=== PATIENT | male | born 1970 | race Caucasian/White ===

== ENCOUNTER 2021-12-26 14:31 | Outpatient (REF) | payer MEDICARE, MEDICAID, SELFPAY ==
--- NOTE | ~2021-12-26 | XR_ITS ---
EXAMINATION: XR KNEE, RIGHT XR KNEE, LEFT CLINICAL INFORMATION: Bilateral knee pain. COMPARISON: Radiographs left knee 07/15/2018. TECHNIQUE: Each knee is imaged in 3 views, including AP view with weight bearing. There are total of 6 views. FINDINGS: Right: Normal bony mineralization. No fracture, dislocation, destructive process. No joint narrowing or erosive change or chondrocalcinosis. There is mild spurring from the lateral patella. No lateralization patella or tilting. There is trace thickening of the suprapatellar bursa. Left: Normal bony mineralization. No fracture, dislocation, or destructive process. No suprapatellar effusion. Moderate effusion on prior study 2018 has resolved. There is no joint narrowing or erosive change or chondrocalcinosis. There is small broad-based central osteophyte medial femoral condyle and borderline spurring lateral patella. No lateralization patella or patellar tilting. XR/XR knee LT 3V IMPRESSION: Right: -Trace fluid suprapatellar bursa. -No joint narrowing or erosive change. Left: -Small central osteophyte medial femoral condyle. No joint narrowing or erosive change. -No suprapatellar effusion (prior moderate effusion 2018 resolved).
--- NOTE | ~2021-12-26 | XR_ITS ---
EXAMINATION: XR KNEE, RIGHT XR KNEE, LEFT CLINICAL INFORMATION: Bilateral knee pain. COMPARISON: Radiographs left knee 07/15/2018. TECHNIQUE: Each knee is imaged in 3 views, including AP view with weight bearing. There are total of 6 views. FINDINGS: Right: Normal bony mineralization. No fracture, dislocation, destructive process. No joint narrowing or erosive change or chondrocalcinosis. There is mild spurring from the lateral patella. No lateralization patella or tilting. There is trace thickening of the suprapatellar bursa. Left: Normal bony mineralization. No fracture, dislocation, or destructive process. No suprapatellar effusion. Moderate effusion on prior study 2018 has resolved. There is no joint narrowing or erosive change or chondrocalcinosis. There is small broad-based central osteophyte medial femoral condyle and borderline spurring lateral patella. No lateralization patella or patellar tilting. XR/XR knee RT 3V IMPRESSION: Right: -Trace fluid suprapatellar bursa. -No joint narrowing or erosive change. Left: -Small central osteophyte medial femoral condyle. No joint narrowing or erosive change. -No suprapatellar effusion (prior moderate effusion 2018 resolved).
--- NOTE | ~2021-12-26 | XR_ITS ---
EXAMINATION: XR CERVICAL SPINE CLINICAL INFORMATION: M50.90 - Cervical disc disorder, unspecified COMPARISON: MR cervical spine 09/14/2016, radiographs cervical spine 07/16/2014. TECHNIQUE: 3 views of the cervical spine were obtained. FINDINGS: There is mild rightward tilting cervical spine on coronal images with normal cervical lordosis. The vertebral bodies are normal in height. There is no cervical vertebral compression, spondylolisthesis, destructive process, or prevertebral soft tissue swelling. The odontoid appears intact. There are mild degenerative disc changes at C6-C7 with disc narrowing and mild endplate sclerosis and anterior vertebral spurring. XR/XR cervical spine 3V IMPRESSION: Degenerative disc changes C6-C7.
--- NOTE | ~2021-12-26 | XR_ITS ---
EXAMINATION: XR ELBOW, RIGHT CLINICAL INFORMATION: M25.521 - Pain in right elbow COMPARISON: None TECHNIQUE: Right elbow is imaged in 3 views. FINDINGS: No fracture, dislocation, destructive process, or elbow capsular effusion. Normal bony mineralization. There is spurring at the olecranon and coronoid process. No joint narrowing or erosive changes. XR/XR elbow RT min 3V IMPRESSION: -Spurring at olecranon and ulnar coronoid process.
--- NOTE | ~2021-12-26 | XR_ITS ---
EXAMINATION: XR THORACIC SPINE CLINICAL INFORMATION: M54.9 - Dorsalgia, unspecified COMPARISON: Radiographs cervical spine and lumbar spine 04/27/2022, radiographs chest 09/25/2016. TECHNIQUE: 3 views of the thoracic spine were obtained. FINDINGS: There is normal thoracic segmentation with 12 rib-bearing thoracic vertebrae of normal height and normal thoracic kyphosis. There is no focal thoracic vertebral compression, spondylolisthesis, destructive process, or paraspinal soft tissue swelling. There are mild degenerative changes mid to lower thoracic spine with fine vertebral body spurring. No erosive change. XR/XR thoracic spine 3V IMPRESSION: -No vertebral compression, spondylolisthesis, destructive process. -Mild spurring mid to lower thoracic vertebra.
--- NOTE | ~2021-12-26 | XR_ITS ---
EXAMINATION: XR LUMBOSACRAL SPINE CLINICAL INFORMATION: M54.50 - Low back pain, unspecified COMPARISON: CT abdomen and pelvis 12/26/2019, radiographs thoracic spine 12/26/2021, MR lumbar spine 09/14/2016, radiographs lumbar spine 09/12/2016. TECHNIQUE: Three views of the lumbosacral spine. FINDINGS: There is normal lumbar segmentation with 5 nonrib-bearing lumbar vertebrae of normal height and normal lumbar lordosis. There is no lumbar vertebral compression, spondylolisthesis, destructive process. There are mild degenerative disc changes lower thoracic spine, L1-L2, and L2-L3. Borderline disc narrowing also present at L4-L5. No erosive change. The SI joints and visualized circumflex MR unremarkable. XR/XR lumbar spine 2-3V IMPRESSION: -Mild degenerative disc changes lower thoracic and upper lumbar spine. -No vertebral compression, spondylolisthesis, destructive process.
[2021-12-26 16:34] LABS: MANUAL DIFF FLAG NO
[2021-12-26 16:42] LABS: Basophils Absolute Auto 0.1 X10*3/uL (0.0-0.2); Basophils Percent Auto 0.9 % (0-2); Eosinophils Absolute Auto 0.2 X10*3/uL (0.0-0.4); Eosinophils Percent Auto 3.7 % (0-4); Hematocrit 43.6 % (42.0-52.0); Hemoglobin 14.5 g/dl (14.0-18.0); Imm Gran Abs Auto 0.01 X10*3/uL (0.00-0.03); Imm Gran Pct Auto 0.2 % (0.0-0.4); Lymphocytes Absolute Auto 1.5 X10*3/uL (1.2-4.9); Lymphocytes Percent Auto 28.8 % (20-40); Mean Corpuscular HGB Conc 33.3 g/dl (31.0-36.0); Mean Corpuscular Hemoglobin 30.1 pg (27.0-33.0); Mean Corpuscular Volume 90.6 fL (80.0-98.0); Mean Platelet Volume 8.5 fL (9.4-12.4); Monocytes Absolute Auto 0.4 X10*3/uL (0.1-1.2); Monocytes Percent Auto 8.2 % (2-11); Neutrophils Absolute Auto 3.1 x10*3/uL (2.0-8.3); Neutrophils Percent Auto 58.2 % (45-73); Platelet Count 340 X10*3/uL (160-400); Red Blood Count 4.81 X10*6/uL (4.60-5.80); Red Cell Distribution Width 12.1 % (11.0-16.0); White Blood Count 5.3 X10*3/uL (4.8-10.8)
[2021-12-26 16:49] LABS: Estimated Average Glucose 105 mg/dL; Hemoglobin A1c % 5.3 %
[2021-12-26 17:03] LABS: Alanine Aminotransferase 22 U/L (0-40); Albumin Level 4.7 g/dL (3.5-5.0); Alkaline Phosphatase 86 U/L (39-117); Anion Gap 12 (12-20); Aspartate Amino Transferase 18 U/L (5-37); Bilirubin Total 1.2 mg/dL (0.0-1.0); Blood Urea Nitrogen 17 mg/dL (9-16); C Reactive Protein 0.15 mg/dL (< or = 0.50); Calcium 10.1 mg/dL (8.4-10.2); Carbon Dioxide 29 mmol/L (22-29); Chloride 104 mmol/L (96-108); Cholesterol 213 mg/dL; Estimated Glomerular Filt Rate > 60; Glucose Fasting 108 mg/dL (60-99); HDL Cholesterol 30 mg/dL; LDL Cholesterol Calculated 135 mg/dl; Potassium 4.2 mmol/L (3.3-5.1); Rheumatoid Factor < 15.0 IU/mL (<15.0); Sodium 141 mmol/L (135-145); Total Protein 7.6 g/dL (6.5-8.0); Triglycerides 244 mg/dL; Uric Acid 6.6 mg/dL (3.4-7.0)
[2021-12-26 17:15] LABS: TSH reflex Free T4 3.22 uIU/mL (0.32-4.0); Vitamin D 25-OH Total 6.7 ng/mL (>30)
[2021-12-26 17:22] LABS: Folate 11.8 ng/mL (> or = 4.0); Vitamin B12 359 pg/mL (200-900)
[2021-12-26 17:24] LABS: Appearance Urine TURBID; Color Urine YELLOW; Glucose Urine UA NEG (NEG); Leukocyte Esterase Urine NEG (NEG); Nitrite Urine NEG (NEG); PH 5.5 (5.0-8.0); Specific Gravity - Urine >= 1.030 (1.005-1.025); UACC Culture Trigger NO; Urine Blood 2+ (NEG); Urine Ketones NEG (NEG); Urine Protein NEG (NEG-TRACE)
[2021-12-26 17:45] LABS: Erythrocyte Sedimentation Rate 6 MM/HR (0-15)
[2021-12-26 18:45] LABS: Amorphous Sediment Urine 4+ /LPF; Calcium Oxalate Crystals Urine 1+ /LPF; RBC Urine 0 /HPF (0); Squamous Epithelial Cell Urine 2+ /LPF; WBC Urine 0 /HPF (0-4)
[2021-12-28 14:26] LABS: Anti Nuclear Antibody Screen NEGATIVE (NEGATIVE)
== END 2021-12-26 14:32 | disposition home or self-care (01) ==
LOC: HO.HMGCX 14:31
PROVIDERS: PCP Internal Medicine; Visit Provider Internal Medicine
DX: M54.50 Low back pain, unspecified (principal); M51.36 Other intervertebral disc degeneration, lumbar region; M50.90 Cervical disc disorder, unspecified, unspecified cervical region; M25.561 Pain in right knee; M25.562 Pain in left knee; M25.521 Pain in right elbow; M54.9 Dorsalgia, unspecified; G89.29 Other chronic pain; E53.8 Deficiency of other specified B group vitamins; R41.3 Other amnesia; R73.01 Impaired fasting glucose; I10 Essential (primary) hypertension; E55.9 Vitamin D deficiency, unspecified; E78.00 Pure hypercholesterolemia, unspecified
CPT/HCPCS: 36415; 72040; 72072; 72100; 73080; 73562; 80053; 80061; 81001; 81003; 82306; 82607; 82746; 83036; 84443; 84550; 85025; 85652; 86038; 86039; 86140; 86431

== ENCOUNTER 2022-10-15 01:57 | Emergency (ER) | payer MEDICARE, MEDICAID, SELFPAY ==
[2022-10-15 02:00] VITALS: BP 140/70; PULSE 86; O2SAT 99
[2022-10-15 02:39] VITALS: BP 134/77; PULSE 79; RESP 16; TEMP 36.6; O2SAT 95; BMI 33.9
[2022-10-15 07:16] VITALS: BP 138/77; PULSE 80; RESP 16; TEMP 36.8; O2SAT 95
--- NOTE | 2022-10-15 08:37 | ED.GENADULT ---
HPI - General Adult General Chief complaint: General Medical Stated complaint: Eval Time Seen by Provider: 10/15/22 08:15 Source: patient and EMS Mode of arrival: EMS Limitations: no limitations History of Present Illness HPI narrative: 52-year-old male with a history of chronic back pain, multiple herniated discs, COPD, anxiety, depression, PTSD, hypertension, hyperlipidemia who presents to the emergency room after her falling asleep while playing cards. Patient reports that he has not been sleeping well due to acute on chronic back pain. He has several oxycodone at home that her left over from old prescription. He has not slept for the last 48 hours. Last night he decided to take 30 mg of oxycodone for worsening back pain. Per patient he was playing cards with his roommate when he fell asleep. This prompted them to call the ambulance. Patient on arrival feels well and has no complaints. Patient tells me that he has multiple herniated discs and has had increased pain left lower back. He also has a history of kidney stones and feels like he may be casting a kidney stone as he initially had some hematuria with this pain. No current urinary symptoms, fevers, vomiting. Patient reports he does not take oxycodone daily. He only took this dose due to severe pain. He denies any intentional overdose. no suicidal or homicidal ideation. currently feels well Related Data Home Medications Medication Instructions Recorded Confirmed atenolol 50 mg tablet 50 mg PO DAILY 10/20/21 08/25/22 Previous Rx's Medication Instructions Recorded tramadol 50 mg tablet 50 mg PO TID PRN pain 28 days #84 10/20/21 tabs metoprolol succinate 50 mg 50 mg PO DAILY 90 days #90 tabs 04/07/22 tablet,extended release 24 hr trazodone 100 mg tablet 100 mg PO BEDTIME PRN for insomnia 05/10/22 #30 tabs escitalopram oxalate 20 mg tablet 20 mg PO DAILY #90 tabs 07/21/22 bupropion HCl 100 mg tablet See Rx Instructions PO BID 30 days 07/25/22 #90 tabs pravastatin 40 mg tablet 40 mg PO DAILY #90 tabs 08/06/22 quetiapine 400 mg tablet 400 mg PO BEDTIME #90 tabs 08/07/22 Ventolin HFA 90 mcg/actuation 2 puff inhalation Q4-6H PRN 08/21/22 aerosol inhaler (albuterol sulfate) shortness of breath or wheezing 30 days #18 grams sennosides 8.6 mg tablet (senna) 17.2 mg PO BEDTIME PRN 08/25/22 constipation 30 days #60 tabs lactulose 20 gram/30 mL oral 20 g (30 mL) PO BEDTIME 3 days #90 09/15/22 solution mL polyethylene glycol 3350 17 gram 17 g PO DAILY 30 days #30 ea 09/15/22 oral powder packet (Miralax) tizanidine 4 mg tablet See Rx Instructions PO Q8H PRN 09/18/22 muscle spasticity 30 days #360 tabs clonazepam 1 mg tablet 1 mg PO Q8H PRN anxiety 30 days 09/21/22 #90 tabs zolpidem 10 mg tablet 10 mg PO BEDTIME PRN insomnia 30 10/11/22 days #30 tabs Allergies Allergy/AdvReac Type Severity Reaction Status Date / Time codeine [Codeine] Allergy Intermediate UPSET Verified 08/25/22 16:01 STOMACH hydrochlorothiazide Allergy Intermediate SICK, Verified 08/25/22 16:01 [HYDROCHLOROTHIAZIDE] nausea and vomiting Penicillins [PENICILLINS] Allergy Intermediate SICK TO Verified 08/25/22 16:01 STOMACH Review of Systems Review of Systems: Yes all other systems are reviewed and are negative Constitutional: Constitutional: Reports no additional constitutional complaints, Denies body ache(s), Denies chills, Denies fever(s), Denies headache(s) and Denies weakness Eyes: Eyes: Reports no additional eye complaints and Denies change in vision ENT: Reports system reviewed and no additional complaints, except as documented, Denies dizziness, Denies headache(s), Denies nasal congestion, Denies nasal discharge and Denies neck pain Cardiovascular: Cardiovascular: Reports no additional cardiovascular complaints, Denies chest pain, Denies leg edema and Denies dyspnea Respiratory: Respiratory: Reports no additional respiratory complaints, Denies cough and Denies dyspnea Gastrointestinal: Gastrointestinal: Reports no additional gastrointestinal complaints, Denies abdominal pain, Denies diarrhea, Denies nausea and Denies vomiting Genitourinary: Genitourinary: Denies urinary incontinence Musculoskeletal: Musculoskeletal: Reports no additional musculoskeletal complaints, Reports back pain, Denies arthralgias, Denies joint swelling, Denies neck pain, Denies numbness and Denies tingling Integumentary/Breasts: Skin/Breast: Reports system reviewed and no additional complaints, except as docu and Denies rash Neurologic: Reports system reviewed and no additional complaints, except as documented, Denies dizziness, Denies headache(s), Denies numbness, Denies tingling and Denies weakness PMFSH Past Medical History Attestation statement: The following information was validated with the patient. Source: old records reviewed and nursing notes reviewed Medical History Anxiety Benign essential hypertension Cervical disc disease Chronic obstructive pulmonary disease (COPD) Constipation Depression GERD without esophagitis Hematuria Impaired fasting glucose Insomnia Lumbar degenerative disc disease Obesity (BMI 30-39.9) Pure hypercholesterolemia Right elbow pain Right knee pain Smoker Vitamin D deficiency Surgical History S/P colonoscopy with polypectomy (~10/07/15) Family History Family History Father Medical history unknown Mother Hypertension Social History Social History Housing: House Alcohol intake: never Patient Tobacco Use Status: Current everyday Tobacco user Cigarettes Per Day: 10 Smoked in Last 30 Days: Yes Second Hand Smoke Exposure: Yes Use of substances other than those prescribed or required for medical reasons: No Advance Directives: No service: No Current occupational status: disabled Cognitive needs: No Hearing needs: No Vision needs: No Physical Exam ED Vital Signs: Vital Signs - 24 hr 10/15/22 02:39 10/15/22 07:16 Temperature 97.9 F 98.3 F Pulse Rate 79 80 Respiratory Rate 16 16 Blood Pressure 134/77 138/77 Pulse Oximetry 95 95 Oxygen Delivery Method Room Air Room Air BMI result Body Mass Index 33.9 Const General: cooperative, healthy appearing, comfortable and no acute distress Orientation/consciousness: patient oriented x3 Limitations: no limitations HENMT Head: Yes normal to inspection Ears: hearing grossly normal bilaterally and TM's normal bilaterally General nose exam: Normal external nose present Face and sinus: Yes normal facial exam Mouth: Normal oral and palatal mucosa present Throat: Yes posterior oropharynx normal, Yes tonsils normal and Yes uvula midline Eyes General: appearance normal, both eyes and all related structures Pupils: Equal, round and reactive pupils present Neck Neck: Yes normal visual inspection, Yes full ROM and Yes no lymphadenopathy Chest Chest palpation & inspection: normal inspection of the chest Resp Effort & Inspection: normal respiratory effort Auscultation: clear to auscultation bilaterally Cardio Rate: regular rate Rhythm: regular rhythm Peripheral pulses: Peripheral pulses 2+ throughout GI Inspection: Yes normal to inspection Palpation (GI): Soft to palpation and nontender General: Yes no CVA tenderness Back/Spine/Pelvis Back: no CVA tenderness Thoracic/Lumbar Spine: thoracic and lumbar spine normal to inspection Skin General skin exam: no rashes or lesions noted Neuro General: patient oriented x3 and moves all extremities Cranial nerves: Yes CN's II-XII intact bilaterally, Yes Equal, round and reactive pupils present, Yes Bilaterally intact EOM present, Yes Nystagmus not present and Yes Normal facial strength present Cognition (Neuro): normal cognition Gait exam (Neuro): Normal gait present Motor exam (neuro): 5/5 motor strength present throughout Sensory Exam: Normal double simultaneous stimulation for sensation Extrem General: Yes normal to inspection, Yes no pedal edema and Yes no calf tenderness Medical Decision Making Medical Decision Making MDM Narrative: 52-year-old male here after telling me that he took 30 mg of oxycodone with little sleep and then fell asleep while playing cards last night with his friends. On arrival patient is alert and oriented. Normal neurological exam with no focal findings. Vitals are stable. Patient reports he took the oxycodone due to acute on chronic back pain and also has additional concerned that he may have passed a kidney stone. Patient has history of chronic back pain due to multiple herniated discs reportedly and had been on chronic opiates until this was held by his primary care. He does have an appointment in a few weeks to discuss his chronic pain with his primary care. He had several tablets left over of oxycodone and he takes them sparingly. Patient denies any intent for harm. On exam abdomen soft nontender. Patient with back pain on exam. I offered to evaluate the patient further with labs, urinalysis, CT of the abdomen and pelvis for his concern for kidney stone. Patient declined this. He wants no further intervention. He wants to go home and follow-up with his primary care doctor. We discussed that is not a good idea to take this large dose of oxycodone on little sleep as he may on intentionally overdose. Patient is agreeable with this moving forward. Differential Diagnosis Differential Diagnoses: The differential diagnosis associated with the presentation includes Over-medicated, unintentional OD Independent Historian Clinical information obtained from an independent historian. History obtained from or confirmed by: EMS Discharge Plan Discharge Clinical Impression: Chronic pain Patient Disposition: Home, Self-Care Instructions: Chronic Pain (ED) Additional Instructions: be careful when taking oxycodone especially if your not sleeping well Prescriptions: No Action metoprolol succinate 50 mg tablet extended release 24 hr 50 mg PO DAILY 90 Days Qty: 90 1RF trazodone 100 mg tablet 100 mg PO BEDTIME PRN (Reason: for insomnia) Qty: 30 5RF escitalopram oxalate 20 mg tablet 20 mg PO DAILY Qty: 90 0RF bupropion HCl 100 mg tablet See Rx Instructions PO BID 30 Days Qty: 90 5RF Rx Instructions: Take 1 tablet in AM and 2 tablets in PM PO 2 times a day; pravastatin 40 mg tablet 40 mg PO DAILY Qty: 90 1RF quetiapine 400 mg tablet 400 mg PO BEDTIME Qty: 90 1RF albuterol sulfate [Ventolin HFA] 90 mcg/actuation HFA aerosol inhaler 2 puff inhalation Q4-6H PRN (Reason: shortness of breath or wheezing) 30 Days Qty: 18 3RF lactulose 20 gram/30 mL solution 20 g PO BEDTIME 3 Days Qty: 90 0RF Rx Instructions: Take daily x 3 days only polyethylene glycol 3350 [Miralax] 17 gram powder in packet 17 g PO DAILY 30 Days Qty: 30 5RF tizanidine 4 mg tablet See Rx Instructions PO Q8H PRN (Reason: muscle spasticity) 30 Days Qty: 360 2RF Rx Instructions: 2 to 4 tablets PO every 8 hours PRN; clonazepam 1 mg tablet 1 mg PO Q8H PRN (Reason: anxiety) 30 Days Qty: 90 0RF zolpidem 10 mg tablet 10 mg PO BEDTIME PRN (Reason: insomnia) 30 Days Qty: 30 0RF sennosides [senna] 8.6 mg tablet 17.2 mg PO BEDTIME PRN (Reason: constipation) 30 Days Qty: 60 2RF atenolol 50 mg tablet 50 mg PO DAILY tramadol 50 mg tablet 50 mg PO TID PRN (Reason: pain) 28 Days Qty: 84 0RF Rx Instructions: No more than 3 tablets a day Referrals: Blaine Miranda MD [Primary Care Provider] - 10 days (as scheduled ) Interventions: Gillespie-Suicide Risk Severity Scale Last Done: 10/15/22 07:16 ED Discharge Assessment Last Done: 10/15/22 08:43
== END 2022-10-15 08:43 | disposition home or self-care (01) ==
PROVIDERS: Emergency Provider Emergency Medicine Emergency Medical Services; PCP Internal Medicine
DX: M54.50 Low back pain, unspecified (principal); G89.29 Other chronic pain; F17.210 Nicotine dependence, cigarettes, uncomplicated; Z71.6 Tobacco abuse counseling; Z79.899 Other long term (current) drug therapy
CPT/HCPCS: 99284

== ENCOUNTER 2022-12-04 15:29 | Outpatient (AMB) | payer MEDICARE, MEDICAID, SELFPAY ==
[2022-12-04 15:32] VITALS: BP 126/84; PULSE 87; TEMP 36.3; O2SAT 93; BMI 35.4
--- NOTE | 2022-12-04 15:32 | A.OFFPC_ITS ---
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 Accompanied by: Self / Same As Patient Allergies codeine [Codeine] Allergy (Intermediate, Verified 11/09/23 17:12) UPSET STOMACH hydrochlorothiazide [HYDROCHLOROTHIAZIDE] Allergy (Intermediate, Verified 11/09/23 17:12) SICK, nausea and vomiting Penicillins [PENICILLINS] Allergy (Intermediate, Verified 11/09/23 17:12) SICK TO STOMACH Medication List - Last Reconciled 11/11/23 by Blaine Miranda MD atenolol 50 mg PO DAILY bupropion HCl Take 1 tablet in AM and 2 tablets in PM PO 2 times a day; 30 days clonazepam 1 mg PO Q8H PRN 30 days escitalopram oxalate 20 mg PO DAILY methocarbamol 500 mg PO TID PRN metoprolol succinate ER 50 mg PO DAILY 90 days orphenadrine citrate ER 100 mg PO BID 30 days polyethylene glycol 3350 (Miralax) 17 grams PO DAILY 30 days pravastatin 40 mg PO DAILY quetiapine 400 mg PO BEDTIME tizanidine 2 to 4 tablets PO every 8 hours PRN; 30 days trazodone 100 mg PO BEDTIME PRN Ventolin HFA 90 mcg/actuation (albuterol sulfate) 2 puffs inhalation Q4-6H PRN 30 days NS zolpidem 10 mg PO BEDTIME PRN 30 days Tobacco use date assessed: 12/04/22 HPI hyperlipidemia, constipation, asthma HPI Details Patient comes in today for his follow up visit He continues to complain of increased pain diffusely, including more recently over both elbows and both knees, which he feels have gotten worse now He also still has chronic pain over his neck and lower back States that his current muscle relaxants have not been helping much and he would like to see if something different can be prescribed He apparently stopped taking (and asking) for Tramadol almost a year ago now and is currently not taking anything else for his pain although it looks like he went to the ER a couple of months ago after reportedly passing away from taking Oxycodone 30 mg on little sleep - states that he got this from a friend but he is no longer taking it currently He denies any headaches or dizziness Denies any chest pains, no increased SOB No nausea/vomiting, no abdominal pain No change in bowel habits noted PFSH Medical History Constipation Obesity (BMI 30-39.9) Smoker Depression Anxiety Insomnia Hematuria Right knee pain Right elbow pain Vitamin D deficiency GERD without esophagitis Cervical disc disease Lumbar degenerative disc disease Chronic obstructive pulmonary disease (COPD) Impaired fasting glucose Benign essential hypertension Pure hypercholesterolemia Surgical History S/P colonoscopy with polypectomy (~10/07/15) Family History Father Medical history unknown Mother Hypertension Social History Housing: House Alcohol intake: never Patient Tobacco Use Status: Current everyday Tobacco user Tobacco use type: Cigarette Cigarettes Per Day: 8 e-Cigarette/Vaping Use: Never Used Second Hand Smoke Exposure: Yes service: No Current occupational status: disabled Cognitive needs: No Hearing needs: No Vision needs: No Questionnaire PHQ-9 Over the last 2 weeks, how often have you been bothered by any of the following problems? 1. Little interest or pleasure in doing things: nearly every day 2. Feeling down, depressed, or hopeless: nearly every day 3. Trouble falling or staying asleep, or sleeping too much: several days 4. Feeling tired or having little energy: several days 5. Poor appetite or overeating: not at all 6. Feeling bad about yourself - or that you are a failure or have let yourself o r your family down: not at all 7. Trouble concentrating on things, such as reading the newspaper or watching television: nearly every day 8. Moving or speaking so slowly that other people could have noticed. Or the opposite - being so fidgety or restless that you have been moving around a lot more than usual: not at all 9. Thoughts that you would be better off or of hurting yourself in some way: not at all Total score: 11 Depression Screening Interpretation: Positive Depression Screening Follow-up: Existing condition and In treatment 85715 - PHQ-9 Billing: Yes Source: Developed by Drs. James Perez, Martha Bruce, Prateek Wright and colleagues, with an educational magdalena from [email or web address] Thrive Questionnaire Date Thrive assessed: 12/04/22 I am a: Patient What is your living situation today?: I have a steady place to live Within the past 12 months, did the food you bought not last and you didn't have the money to get more?: Never true Within the past 12 months, did you worry whether your food would run out before you got money to buy more?: Never true Do you have trouble paying for medicines?: No Do you have trouble getting transportation to medical appointments?: No Do you have trouble taking care of your child, family member or friend?: No Do you have trouble with day-to-day activities such as bathing, preparing meals, shopping, managing finances, etc.?: Yes Are you currently unemployed and looking for a job?: No Are you interested in more education?: No Currently or been in a relationship where the following occur: no concerns reported AUDIT C Alcohol Use Questionnaire (AUDIT-C) 1. How often do you have a drink containing alcohol?: Never Total Score: 0 Score Reviewed/Action Taken: Yes RHIANNON-7 AMB Questionnaire RHIANNON-7 Date RHIANNON - 7 assessed: 01/18/22 Source: Developed by Drs. James Perez, Martha Bruce, Prateek Wright and colleagues, with an educational magdalena from [email or web address] Review of Systems Const Denies chills, Reports difficulty sleeping, Reports fatigue, Denies fever(s) and Denies headache(s) ENT Denies dysphagia, Denies dizziness, Denies otalgia, Denies headache(s), Denies nasal congestion, Reports neck pain (chronic), Denies odynophagia, Denies sinus pain and Denies sore throat Card Denies chest pain, Denies palpitations and Denies dyspnea on exertion Resp Denies chest congestion, Denies cough, Denies dyspnea on exertion and Denies wheezing GI Denies abdominal pain, Reports constipation (on and off), Denies dysphagia, Denies heartburn, Denies diarrhea, Denies nausea, Denies odynophagia and Denies vomiting Denies dysuria, Denies nocturia and Denies urinary frequency Musc Reports back pain (over the lumbar spine - chronic), Reports arthralgias (chronic - especially over both elbows and both knees lately), Reports loss of height and Reports neck pain (chronic) Skin/Breast Denies rash Neuro Denies dizziness and Denies headache(s) Psych Reports anxiety Endo Reports fatigue and Denies palpitations Aller/Immun Denies wheezing Physical exam (Primary Care) Vital Signs: Last Vital Signs Temp 97.3 F 12/04/22 15:32 Pulse 87 12/04/22 15:32 BP 126/84 12/04/22 15:32 Pulse Ox 93 12/04/22 15:32 Oxygen Delivery Method Room Air 12/04/22 15:32 BMI result Body Mass Index 35.4 Tobacco/Smoking Status: Tobacco use Status Tobacco use date assessed 12/04/22 12/04/22 15:40 Patient Tobacco Use Status Current everyday Tobacco 12/04/22 15:40 e-Cigarette/Vaping Use Never Used 12/04/22 15:40 Depression Screening Interpretation: Positive Depression Screening Follow-up: Existing condition and In treatment Thrive Assessment: Date of Thrive Assessment Date Thrive assessed 01/18/22 12/04/22 15:40 Currently or been in a relationship where the following occur: no concerns reported Const General: no acute distress and alert HENMT Ears: TM's normal bilaterally and EAC's normal Throat: Yes posterior oropharynx normal and Yes tonsils normal (no TP congestion) Neck Neck: Yes no lymphadenopathy and Yes tender Thyroid: Thyroid normal Resp Auscultation: clear to auscultation bilaterally, no rales and no wheezes Cardio Rate: regular rate Rhythm: regular rhythm Heart sounds: no murmurs GI Palpation (GI): Soft to palpation and nontender Auscultation: normal bowel sounds General: Yes no CVA tenderness Back/Spine/Pelvis Back: no CVA tenderness Cervical Spine: Cervical spine tenderness Thoracic/Lumbar Spine: thoracic spinal tenderness and lumbar spinal tenderness Skin Rashes: no rashes Extrem General: Yes no clubbing, cyanosis or edema Right upper extremity: shoulder/upper arm Details: tenderness Location: of the A-C joint and elbow/forearm Details: tenderness Location: of the olecranon Left upper extremity: shoulder/upper arm Details: tenderness Location: of the A- C joint and elbow/forearm Right lower extremity: knee Details: tenderness Left lower extremity: knee Details: tenderness Assessment and Plan Assessment & Plan (1) Chronic pain of both knees: Code(s): M25.561 - Pain in right knee; M25.562 - Pain in left knee; G89.29 - Other chronic pain Plan: Will send patient for repeat x-rays of both knees for further evaluation (2) Bilateral elbow joint pain: Code(s): M25.521 - Pain in right elbow; M25.522 - Pain in left elbow Plan: Will also send him for repeat x-rays of both elbows for further evaluation - right elbow x-rays done last year revealed (+) spurring at the olecranon and ulnar coronoid process Will refer him as well to orthopedics for further evaluation and management (3) Lumbar degenerative disc disease: Code(s): M51.36 - Other intervertebral disc degeneration, lumbar region Plan: Reinforced activity and weight-lifting restrictions Repeat thoracic and lumbar spine x-rays done last year revealed (+) mild d egenerative disc changes over the lower thoracic and upper lumbar spine. No vertebral compression, spondylolisthesis or destructive process are noted He was referred patient to pain management in the past but he never scheduled an appointment with them when he was informed beforehand that he will not be started on opioids for his pain He was tried on Gabapentin in the past but he reportedly could not tolerate the medication He also used to be on Tramadol 50 mg TID PRN for pain but has not been prescribed this in over a year now - states that the Rx did not really help much even when he was on it in the past (4) Cervical disc disease: Code(s): M50.90 - Cervical disc disorder, unspecified, unspecified cervical region Plan: Repeat cervical spine x-rays done a couple of years ago revealed (+) degenerative disc changes C6-C7 He was on Tizanidine previously but reports that it is not helping much Will try him instead on Orphenadrine ER 100 mg BID (5) Benign essential hypertension: Code(s): I10 - Essential (primary) hypertension Plan: Reinforced low sodium diet - goal is systolic BP of 120 to 130 mm or less Continue Atenolol 50 mg QD (6) Pure hypercholesterolemia: Code(s): E78.00 - Pure hypercholesterolemia, unspecified Plan: Reinforced low cholesterol diet Continue Pravastatin 40 mg QD Have advised that it has been almost a year now since he had any follow up labs done and he should try to get his previously ordered labs done SIDRA (7) Impaired fasting glucose: Code(s): R73.01 - Impaired fasting glucose Plan: HgbA1c was normal at 5.3% on his previous labs done last year; in-office HgbA1c was also normal at 5.5% when checked previously Reinforced low calorie/low carb diet (8) Chronic obstructive pulmonary disease (COPD): Code(s): J44.9 - Chronic obstructive pulmonary disease, unspecified Qualifiers: COPD type: unspecified COPD Qualified Code(s): J44.9 - Chronic obstructive pulmonary disease, unspecified Plan: Stable? Continue Ipratropium-Albuterol (Duoneb) solution 0.5-2.5 mg/3 ml via nebulizer every 6 hours as needed OR Ventolin HFA 2 puffs 4 times a day as needed (9) GERD without esophagitis: Code(s): K21.9 - Gastro-esophageal reflux disease without esophagitis Plan: Dietary restrictions reinforced Continue Omeprazole 20 mg QD (10) Constipation: Code(s): K59.00 - Constipation, unspecified Qualifiers: Constipation type: unspecified constipation type Qualified Code(s): K59.00 - Constipation, unspecified Plan: Encouraged increased oral fluids and dietary fiber Continue Senna 8.6 mg 2 tablets Q HS PRN and Miralax 17 gm QD - reminded again that Miralax has to be taken everyday for it to be effective He had his screening colonoscopy with Dr. Landon back on 10/07/2015 - (+) hyperplastic polyp; he was recommended to get his repeat colonoscopy in 10 years (2025) (11) Vitamin D deficiency: Code(s): E55.9 - Vitamin D deficiency, unspecified Plan: Continue Vitamin D2 58007 units once a week Will recheck his Vitamin D level for follow up (12) Insomnia: Code(s): G47.00 - Insomnia, unspecified Qualifiers: Insomnia type: unspecified Qualified Code(s): G47.00 - Insomnia, unspecified Plan: Sleep hygiene reinforced Continue Trazodone 100 mg QHS PRN and Zolpidem 10 mg Q HS PRN (13) Anxiety: Code(s): F41.9 - Anxiety disorder, unspecified Plan: Continue Clonazepam 1 mg 2 to 3 times a day as needed and Bupropion 100 mg 1 tablet in AM and 2 tablets Q PM (14) Depression: Code(s): F32.9 - Major depressive disorder, single episode, unspecified Qualifiers: Depression Type: unspecified Qualified Code(s): F32.9 - Major depressive disorder, single episode, unspecified Plan: Continue Escitalopram 20 mg QD and Quetiapine 400 mg Q HS Follow up with psychiatry as scheduled (15) Smoker: Code(s): F17.200 - Nicotine dependence, unspecified, uncomplicated Plan: Counseled again on smoking cessation (16) Obesity (BMI 30-39.9): Code(s): E66.9 - Obesity, unspecified Plan: Reinforced diet; exercise and weight are unrealistic expectations given patient's chronic and multiple joint pains Plan Follow up in 4 months Orders: Orders XR knee LT 4V 12/04/22 M25.561 - Pain in right knee, M25.562 - Pain in left knee, G89.29 - Other chronic pain XR knee RT 4V 12/04/22 M25.561 - Pain in right knee, M25.562 - Pain in left knee, G89.29 - Other chronic pain XR elbow LT min 3V 12/04/22 M25.521 - Pain in right elbow, M25.522 - Pain in left elbow XR elbow RT min 3V 12/04/22 M25.521 - Pain in right elbow, M25.522 - Pain in left elbow Referrals Orthopedics Referral M25.561 - Pain in right knee, M25.562 - Pain in left knee, G89.29 - Other chronic pain, M25.521 - Pain in right elbow, M25.522 - Pain in left elbow Medications: New orphenadrine citrate ER 100 mg PO BID 60 tabs 2RF 30 days Coding Level of Care Code Est Pt Level 4 (79723) Diagnoses Chronic pain of both knees M25.561; M25.562; G89.29 Bilateral elbow joint pain M25.521; M25.522 Lumbar degenerative disc disease M51.36 Cervical disc disease M50.90 Benign essential hypertension I10 Pure hypercholesterolemia E78.00 Impaired fasting glucose R73.01 Chronic obstructive pulmonary disease, unspecified COPD type J44.9 COPD type: unspecified COPD GERD without esophagitis K21.9 Constipation, unspecified constipation type K59.00 Constipation type: unspecified constipation type Vitamin D deficiency E55.9 Insomnia, unspecified type G47.00 Insomnia type: unspecified Anxiety F41.9 Depression, unspecified depression type F32.9 Depression Type: unspecified Smoker F17.200 Obesity (BMI 30-39.9) E66.9
== END 2022-12-04 16:20 | disposition home or self-care (01) ==
LOC: HO.HMGH 15:29
PROVIDERS: PCP Internal Medicine; Visit Provider Internal Medicine
DX: J44.9 Chronic obstructive pulmonary disease, unspecified (principal); M25.561 Pain in right knee; M25.562 Pain in left knee; M25.521 Pain in right elbow; M25.522 Pain in left elbow; M51.36 Other intervertebral disc degeneration, lumbar region; M50.90 Cervical disc disorder, unspecified, unspecified cervical region; I10 Essential (primary) hypertension; E78.00 Pure hypercholesterolemia, unspecified; R73.01 Impaired fasting glucose; K21.9 Gastro-esophageal reflux disease without esophagitis
CPT/HCPCS: 99214

== ENCOUNTER 2023-01-03 06:28 | Outpatient (REF) | payer MEDICARE, MEDICAID, SELFPAY | END 2023-01-03 06:29 | disposition home or self-care (01) | LOC: HO.HOSX 06:28 | PROVIDERS: Visit Provider Physician Assistant | DX: Z13.89 Encounter for screening for other disorder (principal) ==

== ENCOUNTER 2023-11-09 16:11 | Outpatient (AMB) | payer OTHER, SELFPAY ==
--- NOTE | 2023-11-09 16:24 | MHC.PC.OV ---
Vital Signs 11/09/23 16:27 Height 6 ft BMI Reason not done Patient refused/unable BP 130/66 Blood Pressure Location Lt brachial Position Sitting Pulse 76 Pulse Source Pulse Oximeter Pulse Oximetry (%) 97 Oxygen Delivery Method Room Air Intake Visit Reasons: Follow up appt Intake Note: Patient is here to follow up on GERD, HTN, COPD, Impaired fasting glucose. Complaint of swelling of both hands and legs with pain. 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 Accompanied by: Self / Same As Patient Allergies codeine [Codeine] Allergy (Intermediate, Verified 11/09/23 17:12) UPSET STOMACH hydrochlorothiazide [HYDROCHLOROTHIAZIDE] Allergy (Intermediate, Verified 11/09/23 17:12) SICK, nausea and vomiting Penicillins [PENICILLINS] Allergy (Intermediate, Verified 11/09/23 17:12) SICK TO STOMACH Medication List - Last Reconciled 11/11/23 by Blaine Miranda MD atenolol 50 mg PO DAILY bupropion HCl Take 1 tablet in AM and 2 tablets in PM PO 2 times a day; 30 days clonazepam 1 mg PO Q8H PRN 30 days escitalopram oxalate 20 mg PO DAILY methocarbamol 500 mg PO TID PRN metoprolol succinate ER 50 mg PO DAILY 90 days orphenadrine citrate ER 100 mg PO BID 30 days polyethylene glycol 3350 (Miralax) 17 grams PO DAILY 30 days pravastatin 40 mg PO DAILY quetiapine 400 mg PO BEDTIME tizanidine 2 to 4 tablets PO every 8 hours PRN; 30 days trazodone 100 mg PO BEDTIME PRN Ventolin HFA 90 mcg/actuation (albuterol sulfate) 2 puffs inhalation Q4-6H PRN 30 days NS zolpidem 10 mg PO BEDTIME PRN 30 days Tobacco use date assessed: 11/09/23 Dental Screening Dental Screen Date: 11/09/23 Did you have a dental visit in the last 12 months?: No Did you have a dental problem in the last 6 months where you did not have access to dental care?: No Was dental information given to patient?: No HPI Follow up appt HPI Details Patient comes in today for his follow up visit - was last seen almost a year ago in December 2022 Patient continues to complain of increased pain diffusely, including over multiple joints - he keeps repeating that he is in pain all over Most recently states that he has increased pain over both shoulders and the entire right arm (including the elbow, wrist and hand) and also of the left arm but to a lesser extent Feels that this right arm is swollen and weak often and more recently has also been feeling numb Also reports increased pain over his right knee lately He also continues to experience increased anxiety and difficulty sleeping at night but states that his current Rx help somewhat He has also been upset lately as his grandfather, who he feels close to, recently and his mother tried to hide this from him and he only found out when his grandfather was already interred and buried He denies any headaches or dizziness Denies any chest pains, no increased SOB No nausea/vomiting, no abdominal pain No change in bowel habits noted [facility] Medical History Constipation Obesity (BMI 30-39.9) Smoker Depression Anxiety Insomnia Hematuria Right knee pain Right elbow pain Vitamin D deficiency GERD without esophagitis Cervical disc disease Lumbar degenerative disc disease Chronic obstructive pulmonary disease (COPD) Impaired fasting glucose Benign essential hypertension Pure hypercholesterolemia Surgical History S/P colonoscopy with polypectomy (~10/07/15) Family History Father Medical history unknown Mother Hypertension Social History Housing: House Alcohol intake: never Patient Tobacco Use Status: Current everyday Tobacco user Tobacco use type: Cigarette Cigarettes Per Day: 8 e-Cigarette/Vaping Use: Never Used Second Hand Smoke Exposure: Yes service: No Current occupational status: disabled Cognitive needs: No Hearing needs: No Vision needs: No Questionnaire PHQ-9 Over the last 2 weeks, how often have you been bothered by any of the following problems? 1. Little interest or pleasure in doing things: nearly every day 2. Feeling down, depressed, or hopeless: nearly every day 3. Trouble falling or staying asleep, or sleeping too much: several days 4. Feeling tired or having little energy: several days 5. Poor appetite or overeating: not at all 6. Feeling bad about yourself - or that you are a failure or have let yourself or your family down: not at all 7. Trouble concentrating on things, such as reading the newspaper or watching television: nearly every day 8. Moving or speaking so slowly that other people could have noticed. Or the opposite - being so fidgety or restless that you have been moving around a lot more than usual: not at all 9. Thoughts that you would be better off or of hurting yourself in some way: not at all Total score: 11 Depression Screening Interpretation: Positive Depression Screening Follow-up: Existing condition and In treatment Depression Screening Done: Yes 88047 - PHQ-9 Billing: Yes Source: Developed by Drs. James Perez, Martha Bruce, Prateek Wright and colleagues, with an educational magdalena from [employer]. Thrive Questionnaire Date Thrive assessed: 11/09/23 I am a: Patient What is your living situation today?: I have a steady place to live Within the past 12 months, did the food you bought not last and you didn't have the money to get more?: Never true Within the past 12 months, did you worry whether your food would run out before you got money to buy more?: Never true Do you have trouble paying for medicines?: No Do you have trouble getting transportation to medical appointments?: No Do you have trouble paying your heating and electricity bill?: No Do you have trouble taking care of your child, family member or friend?: No Do you have trouble with day-to-day activities such as bathing, preparing meals, shopping, managing finances, etc.?: No Are you currently unemployed and looking for a job?: No Are you interested in more education?: No Currently or been in a relationship where the following occur: no concerns reported THRIVE Score: 0 AUDIT C Alcohol Use Questionnaire (AUDIT-C) 1. How often do you have a drink containing alcohol?: Never Total Score: 0 Score Reviewed/Action Taken: Yes RHIANNON-7 AMB Questionnaire RHIANNON-7 Date RHIANNON - 7 assessed: 11/09/23 Feeling nervous, anxious, or on edge: 3 = Nearly every day Not being able to stop or control worryin = Several days Worrying too much about different things: 1 = Several days Trouble relaxin = Not at all Being so restless that it is hard to sit still: 0 = Not at all Becoming easily annoyed or irritable: 0 = Not at all Feeling afraid as if something awful might happen: 3 = Nearly every day Total RHIANNON-7 score (0-4 normal; 5-9 mild; 10-14 moderate; 15-21 severe): 8 Source: Developed by Drs. James Perez, Martha Bruce, Prateek Wright and colleagues, with an educational magdalena from [employer]. Review of Systems Const Denies chills, Reports difficulty sleeping, Reports fatigue, Denies fever(s) and Denies headache(s) ENT Denies dysphagia, Denies dizziness, Denies otalgia, Denies headache(s), Denies nasal congestion, Reports neck pain, Denies odynophagia, Denies sinus pain and Denies sore throat Card Denies chest pain, Denies palpitations and Denies dyspnea on exertion Resp Denies chest congestion, Denies cough, Denies dyspnea on exertion and Denies wheezing GI Denies abdominal pain, Reports constipation (recurrent), Denies dysphagia, Denies heartburn, Denies diarrhea, Denies nausea, Denies odynophagia and Denies vomiting Denies dysuria, Denies nocturia and Denies urinary frequency Musc Reports back pain (over the lumbar spine - chronic), Reports arthralgias (chronic - involving multiple joints, including his R elbow and both knees), Reports neck pain, Reports numbness (in the right arm) and Reports tingling (on and off) Skin/Breast Denies rash Neuro Denies dizziness, Denies headache(s), Reports numbness (in the right arm) and Reports tingling (on and off) Psych Reports anxiety Endo Reports fatigue and Denies palpitations Aller/Immun Denies wheezing Physical exam (Primary Care) Vital Signs: Last Vital Signs Pulse 76 11/09/23 16:27 BP 130/66 11/09/23 16:27 Pulse Ox 97 11/09/23 16:27 Oxygen Delivery Method Room Air 11/09/23 16:27 Tobacco/Smoking Status: Tobacco use Status Tobacco use date assessed 11/09/23 11/09/23 16:41 Patient Tobacco Use Status Current everyday Tobacco 11/09/23 16:24 Tobacco use type Cigarette 11/09/23 16:41 e-Cigarette/Vaping Use Never Used 11/09/23 16:24 PHQ-9: PHQ-9 Score PHQ-9: Total score 11 11/09/23 17:14 Depression Screening Interpretation: Positive Depression Screening Follow-up: Existing condition and In treatment Thrive Assessment: Date of Thrive Assessment Date Thrive assessed 11/09/23 11/09/23 16:41 Currently or been in a relationship where the following occur: no concerns reported Const General: no acute distress and alert HENMT Ears: TM's normal bilaterally and EAC's normal Throat: Yes posterior oropharynx normal and Yes tonsils normal (no TP congestion) Neck Neck: Yes no lymphadenopathy and Yes tender Resp Auscultation: clear to auscultation bilaterally, no rales and no wheezes Cardio Rate: regular rate Rhythm: regular rhythm Heart sounds: no murmurs GI Palpation (GI): Soft to palpation, nontender (but (+) diffuse discomfort on palpation) and no guarding Auscultation: normal bowel sounds General: Yes no CVA tenderness Back/Spine/Pelvis Back: no CVA tenderness Cervical Spine: Cervical spine tenderness Thoracic/Lumbar Spine: thoracic spinal tenderness and lumbar spinal tenderness Skin Rashes: no rashes Extrem General: Yes no clubbing, cyanosis or edema Right upper extremity: shoulder/upper arm Details: tenderness Location: of the A-C joint, elbow/forearm Details: tenderness Location: of the olecranon and wrist Details: tenderness Location: of the volar wrist Left upper extremity: shoulder/upper arm Details: tenderness Location: of the A-C joint and elbow/forearm Right lower extremity: knee Details: tenderness Left lower extremity: knee Details: tenderness Results AMB Hemoglobin A1c AMB Hemoglobin A1c 5.6 % Last Edit by JOSE Tirado on 11/09/23 16:42 Results Reviewed Results Reviewed: Laboratory Last Values Hgb A1c (Clinic) 5.6 % (4.0-6.0) 11/09/23 16:24 Assessment and Plan Assessment & Plan (1) Multiple joint pain: Code(s): M25.50 - Pain in unspecified joint Plan: Will send patient for repeat x-rays of his right elbow and both knees for further evaluation Will also refer him to rheumatology for further evaluation and management (2) Chronic pain of both knees: Code(s): M25.561 - Pain in right knee; M25.562 - Pain in left knee; G89.29 - Other chronic pain Plan: X-rays of the left knee done back in 2018 revealed a moderate-sized joint effusion with no bony abnormalities noted Repeat bilateral knee x-rays done a couple of years ago revealed (+) trace fluid in the suprapatellar bursa but no joint narrowing or erosive changes in the right knee; (+) small central osteophyte along the medial femoral condyle but no joint narrowing or erosive changes and no suprapatellar effusion (prior moderate effusion 2018 resolved)? He has been referred to orthopedics for further evaluation and management a few times in the past but he has never kept or made it to his appointments with orthopedics (3) Right elbow pain: Code(s): M25.521 - Pain in right elbow Plan: X-rays of the right elbow done a couple of years ago revealed (+) spurring at olecranon and ulnar coronoid processs He was also previously referred to Orthopedics for further evaluation and management of his elbow issue but he never went to his appointment (4) Lumbar degenerative disc disease: Code(s): M51.36 - Other intervertebral disc degeneration, lumbar region Plan: Reinforced activity and weight-lifting restrictions Repeat thoracic and lumbar spine x-rays done a couple of years ago revealed (+) mild degenerative disc changes over the lower thoracic and upper lumbar spine. No vertebral compression, spondylolisthesis or destructive process are noted He was referred patient to pain management in the past but he never scheduled an appointment with them when he was informed beforehand that he will not be started on opioids for his pain He was tried on Gabapentin in the past but he reportedly could not tolerate the medication He also used to be on Tramadol 50 mg TID PRN for pain but has not been prescribed this in over 2 years now - states that the Rx did not really help much even when he was on it in the past (5) Cervical disc disease: Code(s): M50.90 - Cervical disc disorder, unspecified, unspecified cervical region Plan: Repeat cervical spine x-rays done a couple of years ago revealed (+) degenerative disc changes C6-C7 Continue Tizanidine PRN (6) Paresthesia of upper extremity: Code(s): R20.2 - Paresthesia of skin Plan: Will send patient for some labs for further evaluation Will also send him for EMG and NCV of the upper extremities for further evaluation Discussed that his recent increased right elbow pain may be due to some form of bursitis/tendinitis and that his right arm tingling and numbness is most likely a neuropathy or radiculopathy arising from some nerve compression, either along the carpal tunnel, over the ulnar or olecranon area or higher up in the shoulder area and hopefully, the nerve conduction test will help narrow down the source of most of his symptoms (7) Benign essential hypertension: Code(s): I10 - Essential (primary) hypertension Plan: Reinforced low sodium diet - goal is systolic BP of 120 to 130 mm or less Continue Atenolol 50 mg QD (8) Pure hypercholesterolemia: Code(s): E78.00 - Pure hypercholesterolemia, unspecified Plan: Reinforced low cholesterol diet Continue Pravastatin 40 mg QD Will recheck his labs and fasting lipids SIDRA for follow up - advised that it has been at least a couple of years now since he had any follow up labs done and should try to get these done SIDRA (9) Impaired fasting glucose: Code(s): R73.01 - Impaired fasting glucose Plan: HgbA1c was normal at 5.3% on his previous labs done a couple of years ago; in-office HgbA1c was also normal at 5.5% when checked previously Reinforced low calorie/low carb diet (10) Chronic obstructive pulmonary disease (COPD): Code(s): J44.9 - Chronic obstructive pulmonary disease, unspecified Qualifiers: COPD type: unspecified COPD Qualified Code(s): J44.9 - Chronic obstructive pulmonary disease, unspecified Plan: Stable? Continue Ipratropium-Albuterol (Duoneb) solution 0.5-2.5 mg/3 ml via nebulizer every 6 hours as needed OR Ventolin HFA 2 puffs 4 times a day as needed (11) Constipation: Code(s): K59.00 - Constipation, unspecified Qualifiers: Constipation type: unspecified constipation type Qualified Code(s): K59.00 - Constipation, unspecified Plan: Encouraged increased oral fluids and dietary fiber Continue Senna 8.6 mg 2 tablets Q HS PRN and Miralax 17 gm QD - reminded again that Miralax has to be taken everyday for it to be effective He had his screening colonoscopy with Dr. Landon back on 10/07/2015 - (+) hyperplastic polyp; he was recommended to get his repeat colonoscopy in 10 years (2025) (12) GERD without esophagitis: Code(s): K21.9 - Gastro-esophageal reflux disease without esophagitis Plan: Dietary restrictions reinforced Continue Omeprazole 20 mg QD (13) Vitamin D deficiency: Code(s): E55.9 - Vitamin D deficiency, unspecified Plan: Continue Vitamin D2 50929 units once a week Will recheck Vitamin D level for follow up (14) Insomnia: Code(s): G47.00 - Insomnia, unspecified Qualifiers: Insomnia type: unspecified Qualified Code(s): G47.00 - Insomnia, unspecified Plan: Sleep hygiene reinforced Continue Trazodone 100 mg QHS PRN and Zolpidem 10 mg Q HS PRN (15) Anxiety: Code(s): F41.9 - Anxiety disorder, unspecified Plan: Continue Clonazepam 1 mg 2 to 3 times a day as needed and Bupropion 100 mg 1 tablet in AM and 2 tablets Q PM (16) Depression: Code(s): F32.9 - Major depressive disorder, single episode, unspecified Qualifiers: Depression Type: unspecified Qualified Code(s): F32.9 - Major depressive disorder, single episode, unspecified Plan: Continue Escitalopram 20 mg QD and Quetiapine 400 mg Q HS Follow up with psychiatry as scheduled (17) Smoker: Code(s): F17.200 - Nicotine dependence, unspecified, uncomplicated Plan: Counseled again on smoking cessation (18) Obesity (BMI 30-39.9): Code(s): E66.9 - Obesity, unspecified Plan: Reinforced diet; exercise and weight are unrealistic expectations given patient's chronic and multiple joint pains Plan Follow up in 3 months Orders: Orders Comprehensive [place]. Panel Fast 11/09/23 E78.00 - Pure hypercholesterolemia, unspecified Vitamin D 25-OH Total 11/09/23 E55.9 - Vitamin D deficiency, unspecified NE nerve conduction velocity 11/09/23 R20.2 - Paresthesia of skin XR elbow RT min 3V 11/09/23 M25.521 - Pain in right elbow AMB Hemoglobin A1c 11/09/23 R73.01 - Impaired fasting glucose Complete Blood Count Auto Diff 11/09/23 D64.9 - Anemia, unspecified Lipid Panel 11/09/23 E78.00 - Pure hypercholesterolemia, unspecified TSH reflex Free T4 11/09/23 E78.00 - Pure hypercholesterolemia, unspecified UA CC w/rflx Micro + Cult 11/09/23 R30.0 - Dysuria Vitamin B12 and Folate 11/09/23 E53.8 - Deficiency of other specified B group vitamins C Reactive Protein 11/09/23 M25.50 - Pain in unspecified joint Erythrocyte Sedimentation Rate 11/09/23 M25.50 - Pain in unspecified joint CANELO Reflex Titer and Pattern 11/09/23 M25.50 - Pain in unspecified joint Rheumatoid Factor 11/09/23 M25.50 - Pain in unspecified joint NE electromyogram (EMG) 11/09/23 R20.2 - Paresthesia of skin XR knee standing BI 11/09/23 M25.561 - Pain in right knee, M25.562 - Pain in left knee Referrals Rheumatology Referral M25.50 - Pain in unspecified joint Medications: Discontinued lactulose Take daily x 3 days only Discontinued Reason: Patient Completed Course 20 grams (30 mL) PO BEDTIME 90 mL 0RF 3 days Coding Level of Care Code Est Pt Level 4 (08175) Diagnoses Multiple joint pain M25.50 Chronic pain of both knees M25.561; M25.562; G89.29 Right elbow pain M25.521 Lumbar degenerative disc disease M51.36 Cervical disc disease M50.90 Paresthesia of upper extremity R20.2 Benign essential hypertension I10 Pure hypercholesterolemia E78.00 Impaired fasting glucose R73.01 Chronic obstructive pulmonary disease, unspecified COPD type J44.9 COPD type: unspecified COPD Constipation, unspecified constipation type K59.00 Constipation type: unspecified constipation type GERD without esophagitis K21.9 Vitamin D deficiency E55.9 Insomnia, unspecified type G47.00 Insomnia type: unspecified Anxiety F41.9 Depression, unspecified depression type F32.9 Depression Type: unspecified Smoker F17.200 Obesity (BMI 30-39.9) E66.9
[2023-11-09 16:27] VITALS: BP 130/66; PULSE 76; O2SAT 97
== END 2023-11-09 17:23 | disposition home or self-care (01) ==
PROVIDERS: PCP Internal Medicine; Visit Provider Internal Medicine
DX: R73.01 Impaired fasting glucose (principal)
CPT/HCPCS: 83036; 99214

== ENCOUNTER 2023-12-05 14:57 | Outpatient (REF) | payer OTHER, SELFPAY ==
--- NOTE | 2023-12-05 15:09 | EMG_ITS ---
Chief complaint: 2 months ago noticed a lump on right elbow. Since then been having pain/tingling going down to the right hand, with feeling of weakness. Also describes pain and triceps and biceps right-sided, going up to the neck area. Reason for referral: Evaluate for Carpal Tunnel Syndrome versus ulnar neuropathy Referred by: Dr. Miranda Procedure done: Bilateral upper extremities NCS/EMG Precautions and/or limitations: None The limb temperature was monitored continuously and remained between 32-36 degrees C during the performance of the NCS. Ulnar motor NCS was performed with moderate elbow flexion between 70-90 degrees, with across-elbow distance of 10 cm. Nerve Conduction Studies Anti Sensory Summary Table ?Stim Site NR Onset (ms) Norm Onset (ms) Peak (ms) Norm Peak (ms) O-P Amp (?V) Norm O-P Amp Site1 Site2 Delta-0 (ms) Dist (cm) Matthew (m/s) Norm Matthew (m/s) Left Median Anti Sensory (2nd Digit) Wrist ? 2.8 3.5 <3.6 13.9 >10 Wrist 2nd Digit 2.8 14.0 50 Right Median Anti Sensory (2nd Digit) Wrist ? 3.3 4.5 <3.6 16.2 >10 Wrist 2nd Digit 3.3 14.0 42 Right Radial Anti Sensory (Thumb) Forearm ? 0.9 2.0 <3.1 13.3 Forearm Thumb 0.9 0.0 Left Ulnar Anti Sensory (5th Digit) Wrist ? 2.2 3.3 <3.7 10.8 >15.0 Wrist 5th Digit 2.2 14.0 64 Right Ulnar Anti Sensory (5th Digit) Wrist ? 1.7 3.0 <3.7 3.3 >15.0 Wrist 5th Digit 1.7 14.0 82 Motor Summary Table ?Stim Site NR Onset (ms) Norm Onset (ms) O-P Amp (mV) Norm O-P Amp iAmp (mV) Amp (1st) (%) Site1 Site2 Delta-0 (ms) Dist (cm) Matthew (m/s) Norm Matthew (m/s) Left Median Motor (Abd Poll Brev) Wrist ? 4.2 <3.9 5.8 >4.5 6.7 100.0 Elbow Wrist 4.2 22.0 52 >45 Elbow ? 8.4 4.5 5.1 77.6 Right Median Motor (Abd Poll Brev) Wrist ? 4.8 <3.9 11.4 >4.5 13.8 100.0 Elbow Wrist 4.1 23.0 56 >45 Elbow ? 8.9 11.1 13.6 97.4 Left Ulnar Motor (Abd Dig Minimi) Wrist ? 3.1 <3.0 6.5 >5 8.2 100.0 B Elbow Wrist 3.4 20.0 59 >45 B Elbow ? 6.5 8.0 9.7 123.1 A Elbow B Elbow 1.9 10.0 53 >45 A Elbow ? 8.4 5.2 6.1 80.0 Right Ulnar Motor (Abd Dig Minimi) Wrist ? 2.9 <3.0 9.3 >5 11.7 100.0 B Elbow Wrist 3.7 22.0 59 >45 B Elbow ? 6.6 9.5 11.7 102.2 A Elbow B Elbow 1.5 10.0 67 >45 A Elbow ? 8.1 8.9 10.8 95.7 Right Ulnar Motor (FDI) Wrist ? 4.5 <3.0 10.9 >5 12.8 100.0 B Elbow Wrist 3.9 22.0 56 >45 B Elbow ? 8.4 9.5 11.5 87.2 A Elbow B Elbow 1.5 10.0 67 >45 A Elbow ? 9.9 9.2 11.4 84.4 Comparison Summary Table ?Stim Site NR Peak (ms) Norm Peak (ms) P-T Amp (?V) Site1 Site2 Delta-P (ms) Norm Delta (ms) Left Median/Radial Dig I Comparison (Digit 1 - 10cm) Median ? 2.9 <2.9 28.7 Median Radial 0.7 Radial ? 2.2 <2.8 8.0 EMG ?Side Muscle Nerve Root Ins Act Fibs Psw Amp Dur Poly Recrt Int Pat Comment Right 1stDorInt Ulnar C8-T1 Nml Nml Nml Nml Nml 0 Nml Complete Right FlexCarRad Median C6-7 Nml Nml Nml Nml Nml 0 Nml Complete Right Biceps Musculocut C5-6 Nml Nml Nml Nml Nml 0 Nml Complete Right Triceps Radial C6-7-8 Nml Nml Nml Nml Nml 0 Nml Complete Right Deltoid Axillary C5-6 Nml Nml Nml Nml Nml 0 Nml Complete Left 1stDorInt Ulnar C8-T1 Nml Nml Nml Nml Nml 0 Nml Complete Left FlexCarRad Median C6-7 Nml Nml Nml Nml Nml 0 Nml Complete Left Biceps Musculocut C5-6 Nml Nml Nml Nml Nml 0 Nml Complete Left Triceps Radial C6-7-8 Nml Nml Nml Nml Nml 0 Nml Complete Left Deltoid Axillary C5-6 Nml Nml Nml Nml Nml 0 Nml Complete Left FlexCarpiUln Ulnar C8,T1 Nml Nml Nml Nml Nml 0 Nml Complete Right FlexCarpiUln Ulnar C8,T1 Nml Nml Nml Nml Nml 0 Nml Complete Paraspinal EMG ?Side Muscle Nerve Root Ins Act Fibs Psw Comment Right Cervical Upper Rami Nml Nml Nml Right Cervical Mid Rami Nml Nml Nml Right Cervical Lower Rami Nml Nml Nml Left Cervical Upper Rami Nml Nml Nml Left Cervical Mid Rami Nml Nml Nml Left Cervical Lower Rami Nml Nml Nml FINDINGS: Right median motor nerve showed prolonged distal latency, normal amplitude and normal conduction velocity. Right ulnar motor nerve, recording FDI, showed prolonged distal latency, normal amplitude and normal conduction velocity. Left ulnar motor nerve, recording ADM, showed prolonged distal latency, mild drop in amplitude below elbow, mild slowing of conduction velocity across elbow. Right median sensory nerve showed prolonged peak latency. Bilateral ulnar sensory nerves showed normal peak latencies but small amplitudes. Significant interlatency difference seen between left median and radial sensory nerves. All other nerves tested were within normal. Concentric needle EMG was performed in selected muscles of the bilateral upper extremities and cervical paraspinals. Study did not reveal signs of electric abnormalities as shown in the table below. IMPRESSION: 1. This is an abnormal study. 2. There is electrodiagnostic evidence for bilateral moderate-severe median neuropathy at the wrist, consistent with carpal tunnel syndrome. 3. There is electrodiagnostic evidence for bilateral ulnar neuropathy, suspected at the elbow. 4.There is no electrodiagnostic evidence for brachial plexopathy, or cervical radiculopathy. Thank you for your kind referral. Mahsa Henderson MD, VICKI Board Certified, [place] [employer] and [employer] (ABPMR) Board Certified, [place] [employer] Electro[employer]ostic [employer] (ABEM) CODIN 93059 x 2 MTDD
== END 2023-12-05 14:58 | disposition home or self-care (01) ==
LOC: HO.NEURO 14:57
PROVIDERS: PCP Internal Medicine; Visit Provider Internal Medicine
DX: R20.2 Paresthesia of skin (principal)
CPT/HCPCS: 95886; 95911

== ENCOUNTER → 2023-12-05 15:09 | Outpatient (BNV) | payer OTHER, SELFPAY | PROVIDERS: PCP Internal Medicine; Visit Provider Physical Medicine & Rehabilitation | DX: G56.03 Carpal tunnel syndrome, bilateral upper limbs (principal); G56.13 Other lesions of median nerve, bilateral upper limbs; G56.23 Lesion of ulnar nerve, bilateral upper limbs | CPT/HCPCS: 95886; 95911 ==

== ENCOUNTER 2024-02-14 14:12 | Outpatient (AMB) | payer OTHER, SELFPAY ==
--- NOTE | 2024-02-14 14:13 | MHC.OFFVIS ---
Vital Signs 02/14/24 14:14 Height 6 ft Weight 310 lb 13.628 oz BMI 42.2 BP 128/60 Blood Pressure Location Rt brachial Position Sitting Pulse 77 Pulse Source Pulse Oximeter Pulse Oximetry (%) 91 L Oxygen Delivery Method Room Air Intake Visit Reasons: Joint Pain Intake Note: New patient, internally referred by Dr Montenegro, presents to office today for joint pain. 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 Gonzales 53yoM presents for evaluation of chronic pain. He has xrays on order to be done --had EMG studies done, elbow xray - 12/2023 There is electrodiagnostic evidence for bilateral moderate-severe median neuropathy at the wrist, consistent with carpal tunnel syndrome. 3. There is electrodiagnostic evidence for bilateral ulnar neuropathy, suspected at the elbow. --1/2 pack per day smoker --asthma, bronchitis , -mouth breather, audible breathing - no CPAP use; - does not see a assistant manager pt. --bilateral lower extremity +1 pitting edema. --no hand pain or tenderness --no mouth sores, dry eyes or mouth, no fever --multiple back xrays shows herniated discs per patient - needs surgery but he is afraid --paraesthesia to hands with gripping cane. [facility] Medical History (Updated 02/14/24 @ 14:53 by Vivian Medrano [facility]) Bilateral lower extremity edema Constipation Obesity (BMI 30-39.9) Smoker Depression Anxiety Insomnia Hematuria Right knee pain Right elbow pain Vitamin D deficiency GERD without esophagitis Cervical disc disease Lumbar degenerative disc disease Chronic obstructive pulmonary disease (COPD) Impaired fasting glucose Benign essential hypertension Pure hypercholesterolemia Surgical History S/P colonoscopy with polypectomy (~10/07/15) Family History Father Medical history unknown Mother Hypertension Social History Housing: House Alcohol intake: never Patient Tobacco Use Status: Current everyday Tobacco user Tobacco use type: Cigarette Cigarettes Per Day: 8 e-Cigarette/Vaping Use: Never Used Second Hand Smoke Exposure: Yes service: No Current occupational status: disabled Cognitive needs: No Hearing needs: No Vision needs: No Review of Systems Const All systems reviewed & are unremarkable except as noted in HPI and below Physical Exam APPEARANCE: Patient in no acute distress EYES no redness, normal EARS:? External ear normal. NOSE/SINUS:? Airflow through both nares, no nasal discharge, no bleeding THROAT:? Oral mucosa moist, no ulcerations NECK:? No thyromegaly or masses, no adenopathy, trachea midline. HEART:? Regular rhythm, S1-S2 heard, no murmurs, rubs or gallops. LUNG:? Clear to percussion and auscultation EXTREMITIES:? +1 BLE edema, no calf tenderness, normal peripheral pulses. NEURO:? Oriented and alert x3.? No focal weakness.? Reflexes symmetric.? Gait normal. SKIN:? There are no skin lesions evident. No objective signs of Raynaud's phenomenon. JOINT EXAM: Cervical Spine:.? range of motion decreased without pain; no tenderness. Thoracic Spine:.? No scoliosis.? No tenderness on palpation. Lumbar Spine:.? Alignment normal.?decreased ROM with pain, mild tenderness. Chest Wall:.? No tenderness, swelling, increased warmth or erythema. Hands:.? Normal pain-free range of motion without tenderness, swelling, increased warmth or erythema. 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 Wrists:.? Normal pain-free range of motion without tenderness, swelling, increased warmth or erythema. Elbows:. Normal pain-free range of motion without tenderness, swelling, increased warmth or erythema. Shoulders:.??some decreased in range of motion with mild discomfort and mild stiffness. No tenderness, weakness, swelling, increased warmth or erythema. Hips:.? Full range of motion with mild discomfort. Hip bursa:.? No tenderness. Knees:.?? Normal pain-free range of motion without tenderness, swelling, increased warmth or erythema.? There is no effusion. some crepitation Ankles:.? Normal pain-free range of motion without tenderness, swelling, increased warmth or erythema. Feet:.? Normal pain-free range of motion without tenderness, swelling, increased warmth or erythema. Tender points:? No tenderness to digital palpation at the occiput, trapezius, second rib, lateral epicondyle, knees, greater trochanter and gluteal area bilaterally. ? Assessment & Plan Assessment & Plan (1) Paresthesia of upper extremity: Code(s): R20.2 - Paresthesia of skin Category: Medical (2) Multiple joint pain: Code(s): M25.50 - Pain in unspecified joint Category: Medical (3) Chronic pain of both knees: Code(s): M25.561 - Pain in right knee; M25.562 - Pain in left knee; G89.29 - Other chronic pain Category: Medical (4) Smoker: Code(s): F17.200 - Nicotine dependence, unspecified, uncomplicated Category: Social Hx (5) Bilateral lower extremity edema: Code(s): R60.0 - Localized edema Category: Medical Plan Patient with chronic pain. He was dismissed from pain management program and no longer receiving narcotics because he had THC in his urine. i do not see signs of an CTD or inflammatory arthritis. He will do some labs for further. evaluation. He will also do the xrays of knees that were ordered by PCP. He report being told that he has OA to the spine and knees before. Smoking cessation and weightloss would provide susan benefits. There is +1 pitting edema to bilateral lower legs/pete that he will discuss with PCP No f/u needed at this time. Orders: Orders Complement C3 Today M25.50 - Pain in unspecified joint Immunoglobulins,IgG IgA IgM Today M25.50 - Pain in unspecified joint Immunofixation Pnl, Serum Today M25.50 - Pain in unspecified joint Protein Electrophoresis, Serum Today M25.50 - Pain in unspecified joint Creatine Kinase Total Today M25.50 - Pain in unspecified joint Anti DNA DS Antibody Today M25.50 - Pain in unspecified joint Anti Extractable Nuclear Ag Today M25.50 - Pain in unspecified joint Complement C4 Today M25.50 - Pain in unspecified joint HLA B27 Today M25.50 - Pain in unspecified joint, M25.521 - Pain in right elbow, M25.522 - Pain in left elbow Coding Level of Care Code New Pt Level 3 (76658) Diagnoses Paresthesia of upper extremity R20.2 Multiple joint pain M25.50 Chronic pain of both knees M25.561; M25.562; G89.29 Smoker F17.200 Bilateral lower extremity edema R60.0
[2024-02-14 14:14] VITALS: BP 128/60; PULSE 77; O2SAT 91; BMI 42.2
== END 2024-02-14 14:47 | disposition home or self-care (01) ==
LOC: HO.RHE 14:12
PROVIDERS: PCP Internal Medicine; Visit Provider Nurse Practitioner Family
DX: R20.2 Paresthesia of skin (principal); M25.50 Pain in unspecified joint; M25.561 Pain in right knee; M25.562 Pain in left knee; G89.29 Other chronic pain; F17.200 Nicotine dependence, unspecified, uncomplicated; R60.0 Localized edema
CPT/HCPCS: 99203

== ENCOUNTER → 2024-02-14 14:12 | Outpatient (BNVA) | payer OTHER, SELFPAY | PROVIDERS: PCP Internal Medicine; Visit Provider Nurse Practitioner Family | DX: R20.2 Paresthesia of skin (principal); M25.50 Pain in unspecified joint; M25.561 Pain in right knee; M25.562 Pain in left knee; G89.29 Other chronic pain; R60.0 Localized edema | CPT/HCPCS: 99202 ==

== ENCOUNTER 2024-07-22 16:38 | Outpatient (AMB) | payer OTHER, SELFPAY ==
--- NOTE | 2024-07-22 16:38 | A.OFFPC_ITS ---
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: No Accompanied by: Self / Same As Patient Allergies codeine [Codeine] Allergy (Intermediate, Verified 07/22/24 17:01) UPSET STOMACH hydrochlorothiazide [HYDROCHLOROTHIAZIDE] Allergy (Intermediate, Verified 07/22/24 17:01) SICK, nausea and vomiting Penicillins [PENICILLINS] Allergy (Intermediate, Verified 07/22/24 17:01) SICK TO STOMACH Medication List - Last Reconciled 07/22/24 by Blaine Miranda MD atenolol 50 mg PO DAILY bupropion HCl Take 1 tablet in AM and 2 tablets in PM PO 2 times a day; 30 days clonazepam 1 mg PO Q8H PRN 30 days escitalopram oxalate 20 mg PO DAILY methocarbamol 500 mg PO TID PRN metoprolol succinate ER 50 mg PO DAILY 90 days orphenadrine citrate ER 100 mg PO BID 30 days polyethylene glycol 3350 (Miralax) 17 grams PO DAILY 30 days pravastatin 40 mg PO DAILY quetiapine 400 mg PO BEDTIME tizanidine 2 to 4 tablets PO every 8 hours PRN; 30 days trazodone 100 mg PO BEDTIME PRN Ventolin HFA 90 mcg/actuation (albuterol sulfate) 2 puffs inhalation Q4-6H PRN 30 days NS zolpidem 10 mg PO BEDTIME PRN 30 days Tobacco use date assessed: 07/22/24 Dental Screening Dental Screen Date: 07/22/24 HPI medication F/U HPI Details Patient's follow-up visit / consultation today is done over the phone - this is a Telehealth visit Patient's current medications have been reviewed and verified with patient and / or caregiver / proxy and have been updated accordingly in the medication list Patient states that he currently feels okay and that he asked to have his appointment today changed to a telehealth due to transportation issues He reports having problems with some kidney stones a few weeks ago and he was experiencing a lot of flank pains especially when urinating but states that he eventually passed the kidney stone and he is now doing okay He still has diffuse pain and multiple joint pains but states that his current medications (as well as smoking marijuana) help with his pain Also still has his anxiety issues but feels that they are currently better controlled He denies any headaches or dizziness lately Denies any exertional chest pains or increased shortness of breath No nausea/vomiting, no abdominal pain No change in bowel habits noted He is aware that he has not had any follow-up labs done in a while now - states that he was also supposed to have some labs done for rheumatology after he was seen in February 2024 but he never got around to it yet [facility] Medical History Bilateral lower extremity edema Constipation Obesity (BMI 30-39.9) Smoker Depression Anxiety Insomnia Hematuria Right knee pain Right elbow pain Vitamin D deficiency GERD without esophagitis Cervical disc disease Lumbar degenerative disc disease Chronic obstructive pulmonary disease (COPD) Impaired fasting glucose Benign essential hypertension Pure hypercholesterolemia Surgical History S/P colonoscopy with polypectomy (~10/07/15) Family History Father Medical history unknown Mother Hypertension Social History Housing: House Alcohol intake: never Patient Tobacco Use Status: Current everyday Tobacco user Tobacco use type: Cigarette Cigarettes Per Day: 8 e-Cigarette/Vaping Use: Never Used Second Hand Smoke Exposure: Yes service: No Current occupational status: disabled Cognitive needs: No Hearing needs: No Vision needs: No Questionnaire PHQ-9 Over the last 2 weeks, how often have you been bothered by any of the following problems? 1. Little interest or pleasure in doing things: nearly every day 2. Feeling down, depressed, or hopeless: nearly every day 3. Trouble falling or staying asleep, or sleeping too much: several days 4. Feeling tired or having little energy: several days 5. Poor appetite or overeating: not at all 6. Feeling bad about yourself - or that you are a failure or have let yourself or your family down: not at all 7. Trouble concentrating on things, such as reading the newspaper or watching television: nearly every day 8. Moving or speaking so slowly that other people could have noticed. Or the opposite - being so fidgety or restless that you have been moving around a lot more than usual: not at all 9. Thoughts that you would be better off or of hurting yourself in some way: not at all Total score: 11 Depression Screening Interpretation: Positive Depression Screening Follow-up: Existing condition and In treatment Depression Screening Done: Yes 69407 - PHQ-9 Billing: Yes Source: Developed by Drs. James Perez, Martha Bruce, Prateek Wright and colleagues, with an educational magdalena from [employer] Thrive Questionnaire Date Thrive assessed: 07/22/24 I am a: Patient What is your living situation today?: I have a steady place to live Within the past 12 months, did the food you bought not last and you didn't have the money to get more?: Never true Within the past 12 months, did you worry whether your food would run out before you got money to buy more?: Never true Do you have trouble paying for medicines?: No Do you have trouble getting transportation to medical appointments?: No Do you have trouble paying your heating and electricity bill?: No Do you have trouble taking care of your child, family member or friend?: No Do you have trouble with day-to-day activities such as bathing, preparing meals, shopping, managing finances, etc.?: No Are you currently unemployed and looking for a job?: No Are you interested in more education?: No Please select the resources that you would like help with: None Currently or been in a relationship where the following occur: No concerns reported THRIVE Score: 0 AUDIT C Alcohol Use Questionnaire (AUDIT-C) 1. How often do you have a drink containing alcohol?: Never Total Score: 0 Score Reviewed/Action Taken: Yes RHIANNON-7 AMB Questionnaire RHIANNON-7 Date RHIANNON - 7 assessed: 07/22/24 Feeling nervous, anxious, or on edge: 3 = Nearly every day Not being able to stop or control worryin = Several days Worrying too much about different things: 1 = Several days Trouble relaxin = Not at all Being so restless that it is hard to sit still: 0 = Not at all Becoming easily annoyed or irritable: 0 = Not at all Feeling afraid as if something awful might happen: 3 = Nearly every day Total RHIANNON-7 score (0-4 normal; 5-9 mild; 10-14 moderate; 15-21 severe): 8 Source: Developed by Drs. James Perez, Martha Bruce, Prateek Wright and colleagues, with an educational magdalena from [employer] Review of Systems Const Denies chills, Reports difficulty sleeping, Reports fatigue, Denies fever(s) and Denies headache(s) ENT Denies dysphagia, Denies dizziness, Denies otalgia, Denies headache(s), Denies nasal congestion, Reports neck pain (chronic), Denies odynophagia and Denies sore throat Card Denies chest pain, Denies palpitations and Denies dyspnea on exertion Resp Denies chest congestion, Denies cough and Denies dyspnea on exertion GI Denies abdominal pain, Reports constipation (on and off), Denies dysphagia, Denies heartburn, Denies diarrhea, Denies nausea, Denies odynophagia and Denies vomiting Denies dysuria, Denies nocturia and Denies urinary frequency Musc Reports back pain (over the lumbar spine - chronic), Reports arthralgias (chronic - involving multiple joints, including his R elbow and both knees), Reports neck pain (chronic), Reports numbness (in the right arm) and Reports tingling (on and off) Skin/Breast Denies rash Neuro Denies dizziness, Denies headache(s), Reports numbness (in the right arm) and Reports tingling (on and off) Psych Reports anxiety Endo Reports fatigue and Denies palpitations Physical exam (Primary Care) Vital Signs: Physical examination is not performed as visit / consultation today is done over the phone - Telehealth visit All physical findings indicated here, if present, are as per patient's and / or caregivers / proxy's report Tobacco/Smoking Status: Tobacco use Status Tobacco use date assessed 07/22/24 07/22/24 16:40 Patient Tobacco Use Status Current everyday Tobacco 07/22/24 16:40 Tobacco use type Cigarette 07/22/24 16:40 e-Cigarette/Vaping Use Never Used 07/22/24 16:40 PHQ-9: PHQ-9 Score PHQ-9: Total score 11 07/22/24 17:03 Depression Screening Interpretation: Positive Depression Screening Follow-up: Existing condition and In treatment Thrive Assessment: Date of Thrive Assessment Date Thrive assessed 07/22/24 07/22/24 16:40 Currently or been in a relationship where the following occur: No concerns reported Telehealth Telehealth Telehealth Platform: Telephone Location of provider rendering services: practice address Location of patient: address on file Patient Identification confirmed using: Name, : Yes Telehealth method: voice only Patient verbally consented to treatment: Yes Patient verbally consented to billing insurance company: Yes Patient informed of any privacy concerns related to visit: Yes Minutes spent on Phone/Video with Pt.: 21 Coding Level of Care Code Tele Est Pt Level 4 (85377) Diagnoses Pure hypercholesterolemia E78.00 Benign essential hypertension I10 Impaired fasting glucose R73.01 Chronic obstructive pulmonary disease, unspecified COPD type J44.9 COPD type: unspecified COPD Degeneration of intervertebral disc of lumbar region with discogenic back pain M51.360 Disc-related pain type: discogenic back pain only Cervical disc disease M50.90 Chronic pain of both knees M25.561; M25.562; G89.29 Multiple joint pain M25.50 Constipation, unspecified constipation type K59.00 Constipation type: unspecified constipation type GERD without esophagitis K21.9 Vitamin D deficiency E55.9 Insomnia, unspecified type G47.00 Insomnia type: unspecified Anxiety F41.9 Depression, unspecified depression type F32.9 Depression Type: unspecified Smoker F17.200 Obesity (BMI 30-39.9) E66.9 Additional Codes PHQ-9 - 56404 - PHQ-9 Billing: Yes ([id number]) Assessment & Plan Assessment & Plan (1) Pure hypercholesterolemia: Code(s): E78.00 - Pure hypercholesterolemia, unspecified Category: Medical Plan: Reinforced low cholesterol diet Continue Pravastatin 40 mg QD Will have patient get his follow up labs done SIDRA - he is advised that it has been a couple of years now since he last had his cholesterol levels checked and as he is still on medications to help control his cholesterol levels, should get these done SIDRA for follow up (2) Benign essential hypertension: Code(s): I10 - Essential (primary) hypertension Category: Medical Plan: Reinforced low sodium diet - goal is systolic BP of 120 to 130 mm or less Continue Atenolol 50 mg QD (3) Impaired fasting glucose: Code(s): R73.01 - Impaired fasting glucose Category: Medical Plan: Reinforced low calorie/low carb diet Will recheck his HgbA1c for follow up - it was previously at 5.3% when last checked a couple of years ago (4) Chronic obstructive pulmonary disease (COPD): Code(s): J44.9 - Chronic obstructive pulmonary disease, unspecified Category: Medical Qualifiers: COPD type: unspecified COPD Qualified Code(s): J44.9 - Chronic obstructive pulmonary disease, unspecified Plan: Stable Continue Ipratropium-Albuterol (Duoneb) solution 0.5-2.5 mg/3 ml via nebulizer every 6 hours as needed OR Ventolin HFA 2 puffs 4 times a day as needed (5) Lumbar degenerative disc disease: Code(s): M51.36 - Other intervertebral disc degeneration, lumbar region Category: Medical Qualifiers: Disc-related pain type: discogenic back pain only Qualified Code(s): M51.360 - Other intervertebral disc degeneration, lumbar region with discogenic back pain only Plan: Reinforced activity and weight-lifting restrictions Repeat thoracic and lumbar spine x-rays done a couple of years ago revealed (+) mild degenerative disc changes over the lower thoracic and upper lumbar spine. No vertebral compression, spondylolisthesis or destructive process are noted He was referred to pain management in the past but he never scheduled an appointment with them when he was informed beforehand that he will not be started on opioids for his pain He was also tried on Gabapentin in the past but he reportedly could not tolerate the medication He used to be on Tramadol 50 mg TID PRN for pain but has not been prescribed this in over 2 years now - states that the Rx did not really help much even when he was on it in the past (6) Cervical disc disease: Code(s): M50.90 - Cervical disc disorder, unspecified, unspecified cervical region Category: Medical Plan: Cervical spine x-rays done back in December 2021 revealed only (+) degenerative disc changes C6-C7, with no other abnormalities noted (7) Chronic pain of both knees: Code(s): M25.561 - Pain in right knee; M25.562 - Pain in left knee; G89.29 - Other chronic pain Category: Medical Plan: X-rays of the left knee done back in 2017 revealed a moderate-sized joint effusion with no bony abnormalities noted Repeat bilateral knee x-rays done a couple of years ago revealed (+) trace fluid in the suprapatellar bursa but no joint narrowing or erosive changes in the right knee; (+) small central osteophyte along the medial femoral condyle but no joint narrowing or erosive changes and no suprapatellar effusion (prior moderate effusion 2018 resolved)? He has been referred to orthopedics for further evaluation and management a few times in the past but he has never kept or made it to his appointments with orthopedics so far (8) Multiple joint pain: Code(s): M25.50 - Pain in unspecified joint Category: Medical Plan: Patient was seen by Rheumatology a few months ago in February 2024 and was advised that he did not exhibit any signs or symptoms of inflammatory joint disease at the time He was sent for some labs for further evaluation but he never got around to getting them done -states now that he will try to go get them done SIDRA (9) Constipation: Code(s): K59.00 - Constipation, unspecified Category: Medical Qualifiers: Constipation type: unspecified constipation type Qualified Code(s): K59.00 - Constipation, unspecified Plan: He is encouraged again on increased oral fluids and dietary fiber Continue Senna 8.6 mg 2 tablets Q HS PRN and Miralax 17 gm QD - reminded again that Miralax has to be taken everyday for it to be effective He had his screening colonoscopy with Dr. Landon back on 10/07/2015 - (+) hyperplastic polyp; he was recommended to get his repeat colonoscopy in 10 years (2025) (10) GERD without esophagitis: Code(s): K21.9 - Gastro-esophageal reflux disease without esophagitis Category: Medical Plan: Dietary restrictions reinforced Continue Omeprazole 20 mg QD (11) Vitamin D deficiency: Code(s): E55.9 - Vitamin D deficiency, unspecified Category: Medical Plan: Continue Vitamin D2 39264 units once a week Will recheck his Vitamin D level for follow up (12) Insomnia: Code(s): G47.00 - Insomnia, unspecified Category: Medical Qualifiers: Insomnia type: unspecified Qualified Code(s): G47.00 - Insomnia, unspecified Plan: Sleep hygiene reinforced Continue Trazodone 100 mg QHS PRN and Zolpidem 10 mg Q HS PRN (13) Anxiety: Code(s): F41.9 - Anxiety disorder, unspecified Category: Medical Plan: Continue Clonazepam 1 mg 3 times a day as needed and Bupropion 100 mg in AM and 200 mg Q PM (14) Depression: Code(s): F32.9 - Major depressive disorder, single episode, unspecified Category: Medical Qualifiers: Depression Type: unspecified Qualified Code(s): F32.9 - Major depressive disorder, single episode, unspecified Plan: Continue Escitalopram 20 mg QD and Quetiapine 400 mg Q HS Follow up with psychiatry as scheduled (15) Smoker: Code(s): F17.200 - Nicotine dependence, unspecified, uncomplicated Category: Social Hx Plan: Patient is counseled again on smoking cessation (16) Obesity (BMI 30-39.9): Code(s): E66.9 - Obesity, unspecified Category: Medical Plan: Reinforced diet; exercise and weight loss are unrealistic expectations given patient's chronic and multiple joint pains and multiple comorbidities Plan Follow-up in 3 months Orders: Orders Complete Blood Count Auto Diff 07/22/24 D64.9 - Anemia, unspecified Comprehensive [place]. Panel Fast 07/22/24 E78.00 - Pure hypercholesterolemia, unspecified Lipid Panel 07/22/24 E78.00 - Pure hypercholesterolemia, unspecified Vitamin B12 and Folate 07/22/24 E53.8 - Deficiency of other specified B group vitamins TSH reflex Free T4 07/22/24 E78.00 - Pure hypercholesterolemia, unspecified UA CC w/rflx Micro + Cult 07/22/24 R30.0 - Dysuria Vitamin D 25-OH Total 07/22/24 E55.9 - Vitamin D deficiency, unspecified Medications: Discontinued methocarbamol Discontinued Reason: Doctor's Order 500 mg PO TID PRN 90 tabs 0RF low back pain/spasms
== END 2024-07-22 17:50 | disposition home or self-care (01) ==
LOC: HO.HMCH 16:38
PROVIDERS: PCP Internal Medicine; Visit Provider Internal Medicine
DX: E78.00 Pure hypercholesterolemia, unspecified (principal); I10 Essential (primary) hypertension; J44.9 Chronic obstructive pulmonary disease, unspecified; R73.01 Impaired fasting glucose; M51.360 Other intervertebral disc degeneration, lumbar region with discogenic back pain only; M50.90 Cervical disc disorder, unspecified, unspecified cervical region; M25.561 Pain in right knee; M25.562 Pain in left knee; G89.29 Other chronic pain; M25.50 Pain in unspecified joint; K59.00 Constipation, unspecified; K21.9 Gastro-esophageal reflux disease without esophagitis

== ENCOUNTER 2024-10-14 17:07 | Outpatient (AMB) | payer OTHER, SELFPAY ==
--- NOTE | 2024-10-14 17:08 | MHC.PC.OV ---
Vital Signs 10/14/24 17:10 Height 6 ft Weight 297 lb 2 oz BMI 40.3 BP 122/86 Blood Pressure Location Lt brachial Position Sitting Pulse 73 Pulse Source Pulse Oximeter Pulse Oximetry (%) 93 Oxygen Delivery Method Room Air Intake Visit Reasons: med follow up Counter Caser Required: No Accompanied by: Self / Same As Patient Allergies codeine [Codeine] Allergy (Intermediate, Verified 10/14/24 17:27) UPSET STOMACH hydrochlorothiazide [HYDROCHLOROTHIAZIDE] Allergy (Intermediate, Verified 10/14/24 17:27) SICK, nausea and vomiting Penicillins [PENICILLINS] Allergy (Intermediate, Verified 10/14/24 17:27) SICK TO STOMACH Medication List - Last Reconciled 10/15/24 by Blaine Miranda MD atenolol 50 mg PO DAILY buprenorphine-naloxone 8-2 mg (Suboxone) 1.875 film buccal DAILY 30 days bupropion HCl Take 1 tablet in AM and 2 tablets in PM PO 2 times a day; 30 days clonazepam 1 mg PO Q8H PRN 30 days escitalopram oxalate 20 mg PO DAILY metoprolol succinate ER 50 mg PO DAILY 90 days orphenadrine citrate ER 100 mg PO BID 30 days polyethylene glycol 3350 (Miralax) 17 grams PO DAILY 30 days pravastatin 40 mg PO DAILY quetiapine 400 mg PO BEDTIME tizanidine 2 to 4 tablets PO every 8 hours PRN; 30 days trazodone 100 mg PO BEDTIME PRN Ventolin HFA 90 mcg/actuation (albuterol sulfate) 2 puffs inhalation Q4-6H PRN 30 days NS zolpidem 10 mg PO BEDTIME PRN 30 days Tobacco use date assessed: 07/22/24 Dental Screening Dental Screen Date: 07/22/24 Did you have a dental visit in the last 12 months?: No Did you have a dental problem in the last 6 months where you did not have access to dental care?: No Was dental information given to patient?: No HPI med follow up HPI Details Patient comes in today for his follow-up visit States that he continues to experience increased pain all over, including over his neck and lower back Adds that he has also been trying to pass out a kidney stone again and is experiencing a lot of pain when he is using the bathroom He denies any headaches or dizziness Denies any chest pains, no increased SOB No nausea/vomiting, no abdominal pain No change in bowel habits noted Needs a couple of his Rx refilled and is asking if we can raise his Clonazepam dose up to 2 mg from his current 1 mg dose, which he has been on for years Patient has not had any follow up labs done in almost 3 years now ON LICENSE OF [facility] Medical History (Updated 10/15/24 @ 05:59 by Blaine Miranda MD) Nephrolithiasis History of substance abuse Bilateral lower extremity edema Constipation Obesity (BMI 30-39.9) Smoker Depression Anxiety Insomnia Hematuria Right knee pain Right elbow pain Vitamin D deficiency GERD without esophagitis Cervical disc disease Lumbar degenerative disc disease Chronic obstructive pulmonary disease (COPD) Impaired fasting glucose Benign essential hypertension Pure hypercholesterolemia Surgical History S/P colonoscopy with polypectomy (~10/07/15) Family History Father Medical history unknown Mother Hypertension Social History Housing: House Alcohol intake: never Patient Tobacco Use Status: Current everyday Tobacco user Tobacco use type: Cigarette Cigarettes Per Day: 8 e-Cigarette/Vaping Use: Never Used Second Hand Smoke Exposure: Yes service: No Current occupational status: disabled Cognitive needs: No Hearing needs: No Vision needs: No Questionnaire PHQ-9 Over the last 2 weeks, how often have you been bothered by any of the following problems? 1. Little interest or pleasure in doing things: nearly every day 2. Feeling down, depressed, or hopeless: nearly every day 3. Trouble falling or staying asleep, or sleeping too much: several days 4. Feeling tired or having little energy: several days 5. Poor appetite or overeating: not at all 6. Feeling bad about yourself - or that you are a failure or have let yourself or your family down: not at all 7. Trouble concentrating on things, such as reading the newspaper or watching television: nearly every day 8. Moving or speaking so slowly that other people could have noticed. Or the opposite - being so fidgety or restless that you have been moving around a lot more than usual: not at all 9. Thoughts that you would be better off or of hurting yourself in some way: not at all Total score: 11 Depression Screening Interpretation: Positive Depression Screening Follow-up: Existing condition and In treatment Depression Screening Done: Yes 57782 - PHQ-9 Billing: Yes Source: Developed by Drs. James Perez, Martha Bruce, Prateek Wright and colleagues, with an educational magdalena from [employer]. Thrive Questionnaire Date Thrive assessed: 10/14/24 I am a: Patient What is your living situation today?: I have a steady place to live Within the past 12 months, did the food you bought not last and you didn't have the money to get more?: Never true Within the past 12 months, did you worry whether your food would run out before you got money to buy more?: Never true Do you have trouble paying for medicines?: No Do you have trouble getting transportation to medical appointments?: No Do you have trouble paying your heating and electricity bill?: No Do you have trouble taking care of your child, family member or friend?: No Do you have trouble with day-to-day activities such as bathing, preparing meals, shopping, managing finances, etc.?: No Are you currently unemployed and looking for a job?: No Are you interested in more education?: No Please select the resources that you would like help with: None Currently or been in a relationship where the following occur: No concerns reported THRIVE Score: 0 AUDIT C Alcohol Use Questionnaire (AUDIT-C) 1. How often do you have a drink containing alcohol?: Never Total Score: 0 Score Reviewed/Action Taken: Yes RHIANNON-7 AMB Questionnaire RHIANNON-7 Date RHIANNON - 7 assessed: 07/22/24 Source: Developed by Drs. James Perez, Martha Bruce, Prateek Wright and colleagues, with an educational magdalena from [employer]. Review of Systems Const Denies chills, Reports difficulty sleeping, Reports fatigue, Denies fever(s) and Denies headache(s) ENT Denies dysphagia, Denies dizziness, Denies otalgia, Denies headache(s), Denies nasal congestion, Reports neck pain (chronic), Denies odynophagia and Denies sore throat Card Denies chest pain, Denies palpitations and Denies dyspnea on exertion Resp Denies chest congestion, Denies cough and Denies dyspnea on exertion GI Denies abdominal pain, Reports constipation (on and off), Denies dysphagia, Denies heartburn, Denies diarrhea, Denies nausea, Denies odynophagia and Denies vomiting Denies dysuria, Denies nocturia and Denies urinary frequency Musc Reports back pain (over the lumbar spine - chronic), Reports arthralgias (chronic - involving multiple joints, including his R elbow and both knees), Reports neck pain (chronic), Reports numbness (in the right arm) and Reports tingling (on and off) Skin/Breast Denies rash Neuro Denies dizziness, Denies headache(s), Reports numbness (in the right arm) and Reports tingling (on and off) Psych Reports anxiety Endo Reports fatigue and Denies palpitations Physical exam (Primary Care) Vital Signs: Last Vital Signs Pulse 73 10/14/24 17:10 BP 122/86 10/14/24 17:10 Pulse Ox 93 10/14/24 17:10 Oxygen Delivery Method Room Air 10/14/24 17:10 BMI result Body Mass Index 40.3 Tobacco/Smoking Status: Tobacco use Status Tobacco use date assessed 07/22/24 10/14/24 17:09 Patient Tobacco Use Status Current everyday Tobacco 10/14/24 17:09 Tobacco use type Cigarette 10/14/24 17:09 e-Cigarette/Vaping Use Never Used 10/14/24 17:09 Depression Screening Interpretation: Positive Depression Screening Follow-up: Existing condition and In treatment Thrive Assessment: Date of Thrive Assessment Date Thrive assessed 07/22/24 10/14/24 17:09 Currently or been in a relationship where the following occur: No concerns reported Const General: no acute distress and alert HENMT Ears: TM's normal bilaterally and EAC's normal Throat: Yes posterior oropharynx normal and Yes tonsils normal (no TP congestion) Neck Neck: No lymphadenopathy and Yes tender Thyroid: Thyroid normal Resp Auscultation: clear to auscultation bilaterally, no rales and no wheezes Cardio Rate: regular rate Rhythm: regular rhythm Heart sounds: no murmurs GI Palpation (GI): Soft to palpation and nontender Auscultation: normal bowel sounds General: Yes no CVA tenderness Back/Spine/Pelvis Back: no CVA tenderness Cervical Spine: Cervical spine tenderness Thoracic/Lumbar Spine: thoracic spinal tenderness and lumbar spinal tenderness Skin Rashes: no rashes Extrem General: Yes no clubbing, cyanosis or edema Right upper extremity: shoulder/upper arm Details: tenderness Location: of the A-C joint, elbow/forearm Details: tenderness Location: of the olecranon and wrist Details: tenderness Location: of the volar wrist Left upper extremity: shoulder/upper arm Details: tenderness Location: of the A-C joint and elbow/forearm Right lower extremity: knee Details: tenderness Left lower extremity: knee Details: tenderness Coding Level of Care Code Est Pt Level 4 (76092) Diagnoses Pure hypercholesterolemia E78.00 Benign essential hypertension I10 Impaired fasting glucose R73.01 Chronic obstructive pulmonary disease, unspecified COPD type J44.9 COPD type: unspecified COPD Degeneration of intervertebral disc of lumbar region with discogenic back pain M51.360 Disc-related pain type: discogenic back pain only Cervical disc disease M50.90 Chronic pain of both knees M25.561; M25.562; G89.29 Multiple joint pain M25.50 Constipation, unspecified constipation type K59.00 Constipation type: unspecified constipation type GERD without esophagitis K21.9 Nephrolithiasis N20.0 Vitamin D deficiency E55.9 History of substance abuse F19.11 Insomnia, unspecified type G47.00 Insomnia type: unspecified Anxiety F41.9 Depression, unspecified depression type F32.9 Depression Type: unspecified Smoker F17.200 Obesity (BMI 30-39.9) E66.9 Additional Codes PHQ-9 - 74759 - PHQ-9 Billing: Yes ([id number]) Assessment & Plan Assessment & Plan (1) Pure hypercholesterolemia: Code(s): E78.00 - Pure hypercholesterolemia, unspecified Category: Medical Plan: Reinforced low cholesterol diet Continue Pravastatin 40 mg QD Will have patient get his follow up labs done SIDRA - he is advised that it has been over 2 years now since he last had his cholesterol levels checked and as he is still on medications to help lower his cholesterol level, should get these done SIDRA for follow up (2) Benign essential hypertension: Code(s): I10 - Essential (primary) hypertension Category: Medical Plan: Reinforced low sodium diet - goal is systolic BP of 120 to 130 mm or less Continue Atenolol 50 mg QD (3) Impaired fasting glucose: Code(s): R73.01 - Impaired fasting glucose Category: Medical Plan: Reinforced low calorie/low carb diet Will recheck his HgbA1c for follow up - it was previously at 5.3% when last checked a couple of years ago (4) Chronic obstructive pulmonary disease (COPD): Code(s): J44.9 - Chronic obstructive pulmonary disease, unspecified Category: Medical Qualifiers: COPD type: unspecified COPD Qualified Code(s): J44.9 - Chronic obstructive pulmonary disease, unspecified Plan: Stable Continue Ipratropium-Albuterol (Duoneb) solution 0.5-2.5 mg/3 ml via nebulizer every 6 hours as needed OR Ventolin HFA 2 puffs 4 times a day as needed (5) Lumbar degenerative disc disease: Code(s): M51.36 - Other intervertebral disc degeneration, lumbar region Category: Medical Qualifiers: Disc-related pain type: discogenic back pain only Qualified Code(s): M51.360 - Other intervertebral disc degeneration, lumbar region with discogenic back pain only Plan: Reinforced activity and weight-lifting restrictions Repeat thoracic and lumbar spine x-rays done a couple of years ago revealed (+) mild degenerative disc changes over the lower thoracic and upper lumbar spine. No vertebral compression, spondylolisthesis or destructive process are noted He was referred to pain management in the past but he never scheduled an appointment with them when he was informed beforehand that he will not be started on opioids for his pain He was also tried on Gabapentin in the past but he reportedly could not tolerate the medication He used to be on Tramadol 50 mg TID PRN for pain but has not been prescribed this in over 2 years now - states that the Rx did not really help much even when he was on it in the past (6) Cervical disc disease: Code(s): M50.90 - Cervical disc disorder, unspecified, unspecified cervical region Category: Medical Plan: Cervical spine x-rays done back in December 2021 revealed only (+) degenerative disc changes C6-C7, with no other abnormalities noted (7) Chronic pain of both knees: Code(s): M25.561 - Pain in right knee; M25.562 - Pain in left knee; G89.29 - Other chronic pain Category: Medical Plan: X-rays of the left knee done back in 2018 revealed a moderate-sized joint effusion with no bony abnormalities noted Repeat bilateral knee x-rays done a couple of years ago revealed (+) trace fluid in the suprapatellar bursa but no joint narrowing or erosive changes in the right knee; (+) small central osteophyte along the medial femoral condyle but no joint narrowing or erosive changes and no suprapatellar effusion (prior moderate effusion 2018 resolved)? He has been referred to orthopedics for further evaluation and management a few times in the past but he has never kept or made it to his appointments with orthopedics so far (8) Multiple joint pain: Code(s): M25.50 - Pain in unspecified joint Category: Medical Plan: Patient was seen by Rheumatology back in February 2024 and was advised that he did not exhibit any signs or symptoms of inflammatory joint disease at the time He was sent for some labs for further evaluation but he never got them done - states that he will now try to go get these done SIDRA (9) Constipation: Code(s): K59.00 - Constipation, unspecified Category: Medical Qualifiers: Constipation type: unspecified constipation type Qualified Code(s): K59.00 - Constipation, unspecified Plan: He is encouraged again on increased oral fluids and dietary fiber Continue Senna 8.6 mg 2 tablets Q HS PRN and Miralax 17 gm QD - reminded again that Miralax has to be taken everyday for it to be effective He had his screening colonoscopy with Dr. Landon back on 10/07/2015 - (+) hyperplastic polyp; he was recommended to get his repeat colonoscopy in 10 years (2025) (10) GERD without esophagitis: Code(s): K21.9 - Gastro-esophageal reflux disease without esophagitis Category: Medical Plan: Dietary restrictions reinforced Continue Omeprazole 20 mg QD (11) Nephrolithiasis: Code(s): N20.0 - Calculus of kidney Category: Medical Plan: Patient is advised to continue to increase his oral fluid intake If his symptoms get worse, we will consider sending him for renal ultrasound for further evaluation and referring him to Urology for continuing management (12) Vitamin D deficiency: Code(s): E55.9 - Vitamin D deficiency, unspecified Category: Medical Plan: Continue Vitamin D2 30358 units once a week Will recheck his Vitamin D level for follow up (13) History of substance abuse: Code(s): F19.11 - Other psychoactive substance abuse, in remission Category: Medical Plan: Continue Suboxone 8-2 mg - states that he takes a total of 1.75 film daily Follow up with [facility] as scheduled (14) Insomnia: Code(s): G47.00 - Insomnia, unspecified Category: Medical Qualifiers: Insomnia type: unspecified Qualified Code(s): G47.00 - Insomnia, unspecified Plan: Sleep hygiene reinforced Continue Trazodone 100 mg QHS PRN and Zolpidem 10 mg Q HS PRN (15) Anxiety: Code(s): F41.9 - Anxiety disorder, unspecified Category: Medical Plan: Continue Clonazepam 1 mg 3 times a day as needed and Bupropion 100 mg in AM and 200 mg Q PM - he is advised that as he is already multiple medications including Suboxone, he should the same dose clonazepam Discuss that if he feels needs more medication to help with his anxiety, increasing the dose of his clonazepam is not a good long-term solution and he should instead try other maintenance medications to help control his anxiety better He is advised again that he should really be seeing a psychiatrist for continuing management of his mood symptoms (16) Depression: Code(s): F32.9 - Major depressive disorder, single episode, unspecified Category: Medical Qualifiers: Depression Type: unspecified Qualified Code(s): F32.9 - Major depressive disorder, single episode, unspecified Plan: Continue Escitalopram 20 mg QD and Quetiapine 400 mg Q HS Follow up with psychiatry as scheduled (17) Smoker: Code(s): F17.200 - Nicotine dependence, unspecified, uncomplicated Category: Social Hx Plan: Patient is counseled again on smoking cessation (18) Obesity (BMI 30-39.9): Code(s): E66.9 - Obesity, unspecified Category: Medical Plan: Reinforced diet; exercise and weight loss are unrealistic expectations given patient's chronic and multiple joint pains and multiple comorbidities Plan Follow up in 3 months Orders: Orders Anti DNA DS Antibody 10/14/24 M25.50 - Pain in unspecified joint Complement C4 10/14/24 M25.50 - Pain in unspecified joint Creatine Kinase Total 10/14/24 M25.50 - Pain in unspecified joint Immunofixation Pnl, Serum 10/14/24 M25.50 - Pain in unspecified joint Immunoglobulins,IgG IgA IgM 10/14/24 M25.50 - Pain in unspecified joint Sm Sm/[employer] Antibodies 10/14/24 M25.50 - Pain in unspecified joint Complement C3 10/14/24 M25.50 - Pain in unspecified joint HLA B27 10/14/24 M25.50 - Pain in unspecified joint, M25.521 - Pain in right elbow, M25.522 - Pain in left elbow Protein Electrophoresis, Serum 10/14/24 M25.50 - Pain in unspecified joint Medications: New buprenorphine-naloxone 8-2 mg (Suboxone) 1.875 film buccal DAILY 30 days 30 ea 0RF Refilled zolpidem 10 mg PO BEDTIME 30 days PRN 30 tabs 0RF insomnia clonazepam 1 mg PO Q8H 30 days PRN 90 tabs 0RF anxiety
[2024-10-14 17:10] VITALS: BP 122/86; PULSE 73; O2SAT 93; BMI 40.3
== END 2024-10-14 17:48 | disposition home or self-care (01) ==
PROVIDERS: PCP Internal Medicine; Visit Provider Internal Medicine
DX: E78.00 Pure hypercholesterolemia, unspecified (principal); I10 Essential (primary) hypertension; J44.9 Chronic obstructive pulmonary disease, unspecified; F19.11 Other psychoactive substance abuse, in remission; R73.01 Impaired fasting glucose; M51.360 Other intervertebral disc degeneration, lumbar region with discogenic back pain only; M50.90 Cervical disc disorder, unspecified, unspecified cervical region; M25.561 Pain in right knee; M25.562 Pain in left knee; G89.29 Other chronic pain; M25.50 Pain in unspecified joint; K59.00 Constipation, unspecified

== ENCOUNTER → 2024-10-14 17:07 | Outpatient (BNVA) | payer OTHER, SELFPAY | PROVIDERS: PCP Internal Medicine; Visit Provider Internal Medicine | DX: E78.00 Pure hypercholesterolemia, unspecified (principal); I10 Essential (primary) hypertension; R73.01 Impaired fasting glucose; J44.9 Chronic obstructive pulmonary disease, unspecified; M50.90 Cervical disc disorder, unspecified, unspecified cervical region; M51.360 Other intervertebral disc degeneration, lumbar region with discogenic back pain only; M25.561 Pain in right knee; M25.562 Pain in left knee; G89.29 Other chronic pain; K59.00 Constipation, unspecified; K21.9 Gastro-esophageal reflux disease without esophagitis; N20.0 Calculus of kidney; E55.9 Vitamin D deficiency, unspecified; F19.11 Other psychoactive substance abuse, in remission; G47.00 Insomnia, unspecified; F41.9 Anxiety disorder, unspecified; F32.9 Major depressive disorder, single episode, unspecified; E66.9 Obesity, unspecified; F17.200 Nicotine dependence, unspecified, uncomplicated; Z71.6 Tobacco abuse counseling | CPT/HCPCS: 96127; 99212 ==